=== PATIENT | female | born 1960 | race Caucasian/White ===

== ENCOUNTER → 2019-09-22 09:18 | Outpatient (CLI) | payer OTHER, SELFPAY ==
--- NOTE | ~2019-09-22 | MM_ITS ---
EXAMINATION: MM screening aiyana BI w tanya HISTORY: Screening mammogram TECHNIQUE: Craniocaudal and mediolateral oblique 3-D tomosynthesis images were obtained and synthetic 2-D images were generated. CAD analysis was submitted and interpreted. COMPARISON: 09/16/2018, 09/10/2017, 08/28/2016 bilateral digital screening mammogram examinations BREAST PARENCHYMAL COMPOSITION: The breasts are almost entirely fatty. FINDINGS: There is no evidence of suspicious mass, calcification, or architectural distortion to sugg est malignancy in either breast. There has been no suspicious interval change. IMPRESSION: 1. No mammographic evidence of malignancy. 2. Recommend routine screening mammography in one year. BI-RADS Category 1: Negative Reviewed, dictated and finalized at location A. NSTRUCTIVE DENTIST
--- NOTE | ~2019-09-22 | DEXA_ITS ---
Bone Density Report Name: Bernie Washington Age: 59 Sex: Female Ethnicity: White Date of : 1960 Indication: postmenopausal; screening for osteoporosis; asthma or emphysema; Referring Provider: Krista, Florinda Carter Study: Bone densitometry was performed. Exam Date: September 22, 2019 Accession number: [id number] Bone Density: Region BMD T-score Z-score Classification AP Spine (L1-L4) 1.113 0.6 2.0 Normal Femoral Neck (Left) 0.772 -0.7 0.6 Normal Total Hip (Left) 1.040 0.8 1.8 Normal Femoral Neck (Right) 0.780 -0.6 0.7 Normal Total Hip (Right) 0.999 0.5 1.4 Normal Total Hip Mean 1.020 0.7 1.6 Normal World Health Organization criteria for BMD impression classify patients as: Normal (T-score at or above -1.0), Osteopenia (T-score between -1.0 and -2.5), or Osteoporosis (T-score at or below -2.5). 10-year Fracture Risk: FRAX not reported because: All T-scores for Spine Total, Hip Total, Femoral Neck at or above -1.0 Previous Exams: Region Exam Age BMD T-score BMD Change BMD Change Date g/cm2 vs Baseline vs Previous AP Spine(L1-L4) 09/22/2019 59 1.113 0.6 0.112* 0.011 08/28/2016 56 1.102 0.5 0.101* 0.101* 06/20/2012 52 1.002 -0.4 Total Hip(Left) 09/22/2019 59 1.040 0.8 -0.028* -0.072* 08/28/2016 56 1.112 1.4 0.044* 0.044* 06/20/2012 52 1.068 1.0 Total Hip(Right) 09/22/2019 59 0.999 0.5 0.008 -0.010 08/28/2016 56 1.010 0.6 0.018 0.018 06/20/2012 52 0.991 0.4 *Denotes significance at 95% confidence level, LSC for AP Spine = 0.022 g/cm2, LSC for Total Hip = 0.027 g/cm2 Clinical Information Provided by Patient: Has used the following medications: Vitamin D, mtv Has the following medical conditions: Asthma or Emphysema Patient maximum height was 63 Menopause Age: 39 No regular weight bearing exercise Drinks caffeinated beverages Onset of menses at age 12 Number of children 1 Impression: The patient has normal bone mass. The BMD for the Total Hip(Left) decreased, changing by -0.072 since the last DXA exam. Discussion: BONE DENSITY IS ABOVE THE MINIMUM DESIRABLE LEVEL AT ALL SKELETAL SITES TESTED. This patient?s bone mineral density is above the minimum desirable level (T-score -1.0 or better) at all sites measured. The patient should follow a healthful lifestyle (good nutrition with a
== END ==
PROVIDERS: PCP Family Medicine; Visit Provider Nurse Practitioner Obstetrics & Gynecology
DX: Z12.31 Encounter for screening mammogram for malignant neoplasm of breast (principal); Z78.0 Asymptomatic menopausal state
CPT/HCPCS: 77063; 77067; 77080

== ENCOUNTER → 2020-10-11 10:36 | Outpatient (CLI) | payer OTHER, SELFPAY ==
--- NOTE | ~2020-10-11 | MM_ITS ---
EXAMINATION: MM screening aiyana BI w tanya HISTORY: Screening TECHNIQUE: Craniocaudal and mediolateral oblique 3-D tomosynthesis images were obtained and synthetic 2-D images were generated. CAD analysis was submitted and interpreted. COMPARISON: Comparison to multiple prior studies sequentially, with oldest reviewed study dated 11/2015. BREAST PARENCHYMAL COMPOSITION: There are scattered areas of fibroglandular density. FINDINGS: There is no evidence of suspicious mass, calcification, or architectural distortion to sugg est malignancy in either breast. There has been no suspicious interval change. IMPRESSION: 1. No mammographic evidence of malignancy. 2. Recommend routine screening mammography in one year. BI-RADS Category 1: Negative Reviewed, dictated and finalized at location A. MOTIVE MANAGER
== END ==
PROVIDERS: PCP Family Medicine; Visit Provider Nurse Practitioner Obstetrics & Gynecology
DX: Z12.31 Encounter for screening mammogram for malignant neoplasm of breast (principal)
CPT/HCPCS: 77063; 77067

== ENCOUNTER → 2021-01-07 09:53 | Outpatient (CLI) | payer OTHER, SELFPAY ==
--- NOTE | ~2021-01-07 | XR_ITS ---
EXAMINATION: XR abdomen obstructive series EXAM DATE: 01/07/2021 10:12 INDICATION: R19.7 - Diarrhea, unspecified. TECHNIQUE: Frontal upright projection of the upper abdomen, frontal projection of the lower abdomen f or interpretation. Comparison is made to prior examination from 03/07/2014. FINDINGS: There is expected amount of colonic stool and gas. No small bowel dilation, nonobstructiv e bowel gas pattern. There are no suspicious calcifications identified. Mild to moderate lower t horacic dextroscoliosis, lumbar levoscoliosis. Right midlung zone granulomata. IMPRESSION: Unremarkable bowel gas pattern. Reviewed, dictated and finalized at location A.
== END ==
PROVIDERS: PCP Family Medicine; Visit Provider Family Medicine
DX: R10.9 Unspecified abdominal pain (principal); R19.7 Diarrhea, unspecified
CPT/HCPCS: 74019

== ENCOUNTER 2021-01-17 07:32 | Outpatient (CLI) | payer OTHER, SELFPAY ==
--- NOTE | ~2021-01-17 | CT_ITS ---
EXAMINATION: CT abdomen pelvis w con INDICATION: Unspecified abdominal pain and nausea with diarrhea TECHNIQUE: Computed tomographic images of the abdomen and pelvis were obtained after the administrati on of 100 cc of Omnipaque 350 intravenous contrast. The dose-length product (DLP) was 746.40 mGy-cm. Automated exposure control and iterative reconstruction technique were employed. COMPARISON: 02/01/2006 FINDINGS: Minimal dependent atelectasis is present in the lung bases. The heart size is normal. Suben docardial fat deposition in the left ventricular apex and interventricular septum are consistent with prior myocardial infarction. Punctate calcifications in otherwise normal appearing liver and spleen likely represent healed granulomatous disease. The pancreas and gallbladder appear normal. There are chronic small nodules of the adrenal glands, likely adenomas. The kidneys are unremarkable. No pathol ogically enlarged abdominal or pelvic lymph nodes are identified. There is no free intraperitoneal ga s or evidence of bowel obstruction. There is moderate lumbar spondylosis. IMPRESSION: 1. No CT correlate for the patient's symptoms. 2. CT findings consistent with prior myocardial infarction. Reviewed, dictated and finalized at location D.
[2021-01-17 08:03] LABS: Estimated Glomerular Filt Rate > 60
== END 2021-01-17 07:33 | disposition home or self-care (01) ==
LOC: CHSIMG 07:33
PROVIDERS: PCP Family Medicine; Visit Provider Family Medicine
DX: R10.9 Unspecified abdominal pain (principal); R19.7 Diarrhea, unspecified
CPT/HCPCS: 74177; Q9967

== ENCOUNTER 2021-01-23 13:15 | Outpatient (CLI) | payer OTHER, SELFPAY ==
--- NOTE | 2021-01-23 13:21 | ECHO_ITS ---
Patient Info Name: Bernie Washington Age: 60 years : 1960 Gender: Female Ht: 63 in Wt: 200 lbs BSA: 2.05 m2 HR: 72 bpm BP: 127 / 65 mmHg Heart Rhythm: Sinus Rhythm Technical Quality: Good Exam Date: 01/23/2021 1:22 PM Exam Location: [facility] Patient Status: Outpatient Admit Date: 01/23/2021 Staff Ordering Physician: Regla Tavera PA-C Melt Superintendant: Sis Horan RDCS Attending Provider: Regla Tavera PA-C Referring Physician: Liang HORNER; Exam Type: CA echo dop color flow w con Study Info Indications R93.1 - Abnormal findings on diagnostic imaging of heart and coronary circulation Complete two-dimensional, color flow and Doppler transthoracic echocardiogram is performed with contrast to opacify the left ventricle and to improve the deliniation of the left ventricle endocardial borders. Strain analysis performed. Contrast/Agitated Saline Contrast/Ag. Saline: Definity Amount: 4.00 ml New IV Access: Antecubital Space and Right Site Condition: No extravasation, Site dressing applied and IV removed History/Risk Factors Hypertension: Yes Dyslipidemia: No Congenital Heart Disease (CHD): No Peripheral Arterial Disease (PAD): No Myocardial Infarction ([place]): No Chronic Lung Disease: Yes Obesity: Yes Renal Disease: No Coronary Artery Disease (CAD) No Congestive Heart Failure (CHF): No Cardiomyopathy/LV Systolic Dysfunction: No Diabetes Mellitus: No COPD: No Tobacco Use: Former Cerebrovascular Disease: No Family History: Coronary Artery Disease Deep Vein Thrombosis (DVT): None Dialysis: None Frailty Scale (CSHA): 2: Well Summary 1. Left ventricular chamber dimension is normal. 2. Definity contrast administered improved wall motion interpretation. 3. Left ventricular systolic function is normal, estimated at 60-65%. 4. There is mildly increased left ventricular wall thickness. 5. The left ventricular diastolic function is normal. 6. E/e' 8 is minimally elevated. 7. Global longitudinal strain is normal at -18.6%. 8. Left atrial chamber dimension is mildly enlarged. 9. There is trace mitral valve regurgitation. 10. There is mild tricuspid valve regurgitation. 11. No pulmonary hypertension, estimated pulmonary arterial systolic pressure is 33 mmHg. Left Ventricle E/e' 8 is minimally elevated. Global longitudinal strain is normal at -18.6%. Definity contrast administered improved wall motion interpretation. Left ventricular chamber dimension is normal. Left ventricular systolic function is normal, estimated at 60-65%. There is mildly increased left ventricular wall thickness. The left ventricular diastolic function is normal. Right Ventricle Right ventricular systolic function is normal and with normal TAPSE 2.6 cm. Right ventricular chamber dimension is normal. Left Atria Left atrial chamber dimension is mildly enlarged. Right Atria Right atrial chamber dimension is normal. Aortic Valve The aortic valve is trileaflet. There is no aortic valve stenosis. There is no aortic valve regurgitation. Pulmonic Valve There is no pulmonic regurgitation. Mitral Valve There is no mitral valve stenosis. There is trace mitral valve regurgitation. Tricuspid Valve There is mild tricuspid valve regurgitation. No pulmonary hypertension, estimated pulmonary arterial systolic pressure is 33 mmHg. Pericardi
== END 2021-01-23 13:16 | disposition home or self-care (01) ==
LOC: CHSIMG 13:16
PROVIDERS: PCP Family Medicine; Visit Provider Physician Assistant
DX: R93.1 Abnormal findings on diagnostic imaging of heart and coronary circulation (principal)
CPT/HCPCS: C8929

== ENCOUNTER 2021-03-24 15:36 | Outpatient (CLI) | payer OTHER, SELFPAY ==
--- NOTE | 2021-03-24 15:38 | ECG_ITS ---
Measurements Intervals Simon Rate: 68 P: 68 FL: 147 QRS: 72 QRSD: 86 T: 35 QT: 373 QTc: 399 Interpretive Statements SINUS RHYTHM POSSIBLE LEFT ATRIAL ENLARGEMENT BORDERLINE ST ABNORMALITY- ANTEROLAT/INF LEADS BORDERLINE ECG Electronically Signed On 03-24-2021 16:49:31 CDT by Hiram Montalvo D.O.
== END 2021-03-24 15:37 | disposition home or self-care (01) ==
PROVIDERS: PCP Internal Medicine; Visit Provider Internal Medicine Cardiovascular Disease
DX: R00.2 Palpitations (principal)
CPT/HCPCS: 93005

== ENCOUNTER 2021-10-13 09:11 | Outpatient (CLI) | payer OTHER, SELFPAY ==
[2021-10-13 09:52] LABS: Basophils Absolute Auto 0.06 K/mm3 (0.00-0.10); Basophils Percent Auto 1.4 % (0.0-1.0); Eosinophils Percent Auto 4.8 % (1.0-6.0); Hematocrit 47.4 % (35.0-49.0); Hemoglobin 14.3 g/dL (12.0-15.0); Immature Granulocyte Absolute 0.01 K/mm3 (0.00-0.00); Immature Granulocyte Percent A 0.2 % (0.0-0.0); Lymphocytes Absolute Auto 1.46 K/mm3 (1.10-4.50); Lymphocytes Percent Auto 34.8 % (18.0-42.0); Mean Corpuscular HGB Conc 30.2 g/dL (32.0-36.0); Mean Corpuscular Hemoglobin 29.5 pg (27.0-31.0); Mean Corpuscular Volume 97.9 fL (78.0-102.0); Mean Platelet Volume 10.8 fl (9.2-11.8); Monocytes Absolute Auto 0.32 K/mm3 (0.10-0.90); Monocytes Percent Auto 7.6 % (2.0-11.0); Neutrophils Absolute Auto 2.1 K/mm3 (1.7-7.2); Neutrophils Percent Auto 51.2 % (50.0-70.0); Platelet Count Result 221 K/mm3 (150-420); Red Blood Count 4.84 M/mm3 (4.20-5.40); Red Cell Distribution Width 12.6 % (11.6-14.4); White Blood Count 4.2 K/mm3 (4.8-10.8)
[2021-10-13 10:08] LABS: Add Urine Microscopic? YES; Appearance Urine Clear (Clear); Bilirubin Urine Negative (Negative); Blood Urine Negative (Negative); Color Urine Light Yellow (Yellow); Glucose Urine UA Negative (Negative); Ketones Urine Negative (Negative); Leukocyte Esterase Ur 3+ (Negative); Nitrate Urine Negative (Negative); Protein Urine Negative (Negative); Specific Grav Ur 1.025 (1.010-1.020); Urobilinogen Urine 0.2 mg/dL (0.2-1.0)
[2021-10-13 10:20] LABS: Bacteria Urine 1+ /hpf; RBC Urine None seen /hpf (0-2); Renal Epithelial Cells Urine Few /hpf; Squamous Epithelial Cell Urine Few /hpf (Few); WBC Urine 16-20 /hpf (0-3)
[2021-10-13 11:04] LABS: Alanine Aminotransferase 21 U/L (14-59); Albumin Level 3.7 g/dL (3.4-5.0); Alkaline Phosphatase 53 U/L (46-116); Anion Gap 9 mmol/L (8-16); Aspartate Amino Transferase 14 U/L (15-37); Bilirubin,Total 0.4 mg/dL (0.00-1.00); Blood Urea Nitrogen 16 mg/dL (7-18); Calcium 8.7 mg/dL (8.5-10.1); Carbon Dioxide 25 mmol/L (21-32); Chloride 103 mmol/L (98-108); Cholesterol 283 mg/dL (0-200); Estimated Glomerular Filt Rate > 60; Glucose 96 mg/dL (70-99); HDL Direct 102 mg/dL (40-60); LDL Cholesterol Calculated 165 mg/dL (<130); Osmolality Calculated 285 mOsm/kg (285-295); Potassium 4.5 mmol/L (3.5-5.1); Sodium 137 mmol/L (136-145); Thyroid Stimulating Hormone 1.35 uIU/mL (0.36-3.74); Total Protein 7.1 g/dL (6.4-8.2); Triglycerides 82 mg/dL (0-150)
[2021-10-13 11:58] LABS: Cholesterol 283 mg/dL (0-200); HDL Direct 102 mg/dL (40-60); LDL Cholesterol Calculated 165 mg/dL (<130); Triglycerides 82 mg/dL (0-150)
== END 2021-10-13 09:12 | disposition home or self-care (01) ==
LOC: CHSLAB 09:13
PROVIDERS: PCP Internal Medicine; Visit Provider Internal Medicine Cardiovascular Disease
DX: E78.5 Hyperlipidemia, unspecified (principal); Z00.00 Encounter for general adult medical examination without abnormal findings
CPT/HCPCS: 36415; 80053; 80061; 81001; 84443; 85025

== ENCOUNTER 2021-10-21 15:32 | Outpatient (CLI) | payer OTHER, SELFPAY ==
--- NOTE | ~2021-10-21 | XR_ITS ---
XR chest 2V DATE: 10/21/2021 16:00 INDICATION: Cough, shortness of breath, back pain for one week TECHNIQUE: PA and lateral views COMPARISON: 02/26/2010 PA and lateral chest FINDINGS: Bilateral hyperinflation, consistent with COPD. No pulmonary infiltrate or consolidation, p leural effusion or pulmonary vascular congestion or pneumothorax. There is old pulmonary granulomatou s disease. Normal heart size. No hilar or mediastinal enlargement. Diffuse osteopenia. Dextroscoliosis of the thoracolumbar spine. IMPRESSION: Bilateral hyperinflation consistent with COPD No active cardiopulmonary disease Reviewed, dictated and finalized at location A. RER
[2021-10-21 16:29] LABS: Basophils Absolute Auto 0.04 K/mm3 (0.00-0.10); Basophils Percent Auto 0.4 % (0.0-1.0); Eosinophils Absolute Auto 0.02 K/mm3 (0.02-0.50); Eosinophils Percent Auto 0.2 % (1.0-6.0); Hematocrit 40.8 % (35.0-49.0); Hemoglobin 13.6 g/dL (12.0-15.0); Immature Granulocyte Absolute 0.04 K/mm3 (0.00-0.00); Immature Granulocyte Percent A 0.4 % (0.0-0.0); Lymphocytes Absolute Auto 1.72 K/mm3 (1.10-4.50); Lymphocytes Percent Auto 17.9 % (18.0-42.0); Mean Corpuscular HGB Conc 33.3 g/dL (32.0-36.0); Mean Corpuscular Hemoglobin 30.2 pg (27.0-31.0); Mean Corpuscular Volume 90.5 fL (78.0-102.0); Mean Platelet Volume 11.1 fl (9.2-11.8); Monocytes Absolute Auto 0.44 K/mm3 (0.10-0.90); Monocytes Percent Auto 4.6 % (2.0-11.0); Neutrophils Absolute Auto 7.4 K/mm3 (1.7-7.2); Neutrophils Percent Auto 76.5 % (50.0-70.0); Platelet Count Result 254 K/mm3 (150-420); Red Blood Count 4.51 M/mm3 (4.20-5.40); Red Cell Distribution Width 12.5 % (11.6-14.4); White Blood Count 9.6 K/mm3 (4.8-10.8)
[2021-10-21 16:38] LABS: Alanine Aminotransferase 19 U/L (14-59); Albumin Level 4.1 g/dL (3.4-5.0); Alkaline Phosphatase 54 U/L (46-116); Anion Gap 11 mmol/L (8-16); Aspartate Amino Transferase 10 U/L (15-37); Bilirubin,Total 0.3 mg/dL (0.00-1.00); Blood Urea Nitrogen 16 mg/dL (7-18); Calcium 9.1 mg/dL (8.5-10.1); Carbon Dioxide 26 mmol/L (21-32); Chloride 104 mmol/L (98-108); Estimated Glomerular Filt Rate > 60; Glucose 113 mg/dL (70-99); Osmolality Calculated 294 mOsm/kg (285-295); Potassium 3.9 mmol/L (3.5-5.1); Sodium 141 mmol/L (136-145)
[2021-10-21 16:41] LABS: SARS-CoV-2 RNA PCR Negative (Negative)
== END 2021-10-21 15:33 | disposition home or self-care (01) ==
LOC: CHSLAB 15:33
PROVIDERS: PCP Internal Medicine; Visit Provider Internal Medicine
DX: J18.9 Pneumonia, unspecified organism (principal); Z20.822 Contact with and (suspected) exposure to COVID-19
CPT/HCPCS: 36415; 71046; 80053; 85025; C9803; U0003; U0005

== ENCOUNTER 2022-05-13 11:50 | Outpatient (CLI) | payer OTHER, SELFPAY ==
[2022-05-13 12:03] LABS: Basophils Absolute Auto 0.08 K/mm3 (0.00-0.10); Basophils Percent Auto 0.9 % (0.0-1.0); Eosinophils Absolute Auto 0.27 K/mm3 (0.02-0.50); Hematocrit 42.9 % (35.0-49.0); Hemoglobin 14.5 g/dL (12.0-15.0); Immature Granulocyte Absolute 0.05 K/mm3 (0.00-0.00); Immature Granulocyte Percent A 0.6 % (0.0-0.0); Lymphocytes Absolute Auto 3.23 K/mm3 (1.10-4.50); Lymphocytes Percent Auto 35.7 % (18.0-42.0); Mean Corpuscular HGB Conc 33.8 g/dL (32.0-36.0); Mean Corpuscular Hemoglobin 30.7 pg (27.0-31.0); Mean Corpuscular Volume 90.7 fL (78.0-102.0); Mean Platelet Volume 10.4 fl (9.2-11.8); Monocytes Absolute Auto 0.68 K/mm3 (0.10-0.90); Monocytes Percent Auto 7.5 % (2.0-11.0); Neutrophils Absolute Auto 4.7 K/mm3 (1.7-7.2); Neutrophils Percent Auto 52.3 % (50.0-70.0); Platelet Count Result 288 K/mm3 (150-420); Red Blood Count 4.73 M/mm3 (4.20-5.40); Red Cell Distribution Width 12.6 % (11.6-14.4)
[2022-05-13 12:45] LABS: Alanine Aminotransferase 23 U/L (14-59); Albumin Level 3.8 g/dL (3.4-5.0); Alkaline Phosphatase 61 U/L (46-116); Anion Gap 8 mmol/L (8-16); Aspartate Amino Transferase 12 U/L (15-37); Bilirubin,Total 0.4 mg/dL (0.00-1.00); Blood Urea Nitrogen 21 mg/dL (7-18); Calcium 8.8 mg/dL (8.5-10.1); Carbon Dioxide 28 mmol/L (21-32); Chloride 100 mmol/L (98-108); Creatine Kinase 47 U/L (26-192); Estimated Glomerular Filt Rate > 60; Ferritin 169 ng/mL (8-252); Glucose 100 mg/dL (70-99); Magnesium 2.2 mg/dL (1.8-2.4); Osmolality Calculated 285 mOsm/kg (285-295); Phosphorus 4.1 mg/dL (2.6-4.7); Potassium 3.8 mmol/L (3.5-5.1); Sodium 136 mmol/L (136-145); Thyroid Stimulating Hormone 1.96 uIU/mL (0.36-3.74); Total Protein 7.1 g/dL (6.4-8.2)
[2022-05-13 12:47] LABS: CRP < 0.2 mg/dL (0.0-0.9)
[2022-05-13 17:01] LABS: Hemoglobin A1C 5.3 % (<5.7)
== END 2022-05-13 11:51 | disposition home or self-care (01) ==
LOC: CHSLAB 11:52
PROVIDERS: PCP Internal Medicine; Visit Provider Internal Medicine
DX: G25.81 Restless legs syndrome (principal); R73.09 Other abnormal glucose
CPT/HCPCS: 36415; 80053; 82550; 82728; 83036; 83735; 84100; 84443; 85025; 86140

== ENCOUNTER 2022-06-23 09:42 | Outpatient (CLI) | payer OTHER, SELFPAY ==
--- NOTE | ~2022-06-23 | XR_ITS ---
EXAM: XR hip LT min 2V DATE: 06/23/2022 10:07 HISTORY: Left hip pain/back pain chronic leg pain radiating to the . COMPARISON: None available. FINDINGS: Normal mineralization. No fracture or dislocation. No lytic or blastic lesion. Mild superi or hip joint space narrowing. No erosion or periosteal change. Soft tissues within normal limits. IMPRESSION: Mild left hip osteoarthritis. Reviewed, dictated and finalized at location K.
--- NOTE | ~2022-06-23 | XR_ITS ---
EXAMINATION: XR lumbar spine 2-3V DATE: 06/23/2022 10:08 INDICATION: Chronic left hip and back pain radiating to the ankle TECHNIQUE: Anteroposterior and lateral views of the lumbar spine, and cone-down lateral view of the l umbosacral junction were obtained. COMPARISON: None. FINDINGS: T12 bilateral hypoplastic riblets. 7 degrees lumbar levocurvature. 3 mm anterolisthesis L4 on L5. Vertebral body heights are normal. Moderate to severe disc height loss with vacuum phenomena at L1-L2 and L2-L3. Moderate disc height loss at T10-T11 and with vacuum pheno reynolds at L5-S1. Mild disc height loss at T12-L1, L3-L4 and L4-L5. Superior lower lumbar facet osteoart hritis. Sacral arches are intact. Mild bilateral sacroiliac osteoarthritis. Suggestion of a suture li ne in the left hemipelvis. Posterior lung bases are clear with no pleural effusion. IMPRESSION: 1. Mild lumbar levocurvature with moderate to severe spondylosis. Reviewed, dictated and finalized at location B.
== END 2022-06-23 09:43 | disposition home or self-care (01) ==
LOC: CHSIMG 09:45
PROVIDERS: PCP Internal Medicine; Visit Provider Internal Medicine
DX: M25.552 Pain in left hip (principal); M54.9 Dorsalgia, unspecified
CPT/HCPCS: 72100; 73502

== ENCOUNTER 2022-06-29 07:51 | Outpatient (RCR) | payer OTHER, SELFPAY ==
--- NOTE | 2022-06-29 09:03 | PTOPEVAL1 ---
Assessment and note entered by Eduardo Ortiz Evaluation Information Assessment Status Evaluation Diagnosis right lumbar radiculopathy Onset 05/25/22 Subjective Information Pt. reports that she developed pain initially about 1 month ago. She reports pain started with pain at the low back and radiating down the right leg with laying down. She reports no discomfort with sitting. She reports that pain can vary with standing. She states that she can develop pain with standing to fold clothes. She underwent xray which revealed some disc that do not look good. She did have some OA in the hip. She reports she continues to complete all activities despite her pain. She reports she is losing sleep due to pain . She states that Reported Pain Level Pain Score 3: Self Report Assessment PT Clinical Summary Pt. is a 62 year old female who enters the clinic due to developed low back pain. She presents with core and proximal l.e. weakness, impaired postural awareness, impaired flexibility and pain. Continued treatment is indicated in order to improve these areas to allow the pt. to be able to complete all IADL's without limitation. Plan of Care Interventions Electrical Stimulation,Hot Pack/Cold Pack,Manual Therapy,Mechanical Traction,Neuro Re-education, Therapeutic Activities,Therapeutic Exercise,Self- Care/Home Management PT Services Indicated Yes Treatment Frequency and 2x/week x 10 visits Duration These treatments will address the objective and functional deficits as defined above. The patient will be advanced safely and appropriately in order for the patient to progress towards his/her prior level of function. Additional exercises will be introduced and as well as a comprehensive home exercise program upon discharge, if needed, ?to ensure carryover of functional gains achieved in the clinic. This treatment plan has been reviewed and agreement upon by the patient.
== END 2022-07-09 15:21 | disposition home or self-care (01) ==
LOC: CHSPT 07:51
PROVIDERS: PCP Internal Medicine; Visit Provider Internal Medicine
DX: M47.817 Spondylosis without myelopathy or radiculopathy, lumbosacral region (principal); M54.16 Radiculopathy, lumbar region
CPT/HCPCS: 97014; 97110; 97161; G0283

== ENCOUNTER 2022-07-08 17:15 | Outpatient (CLI) | payer OTHER, SELFPAY ==
--- NOTE | ~2022-07-08 | XR_ITS ---
XR thoracic spine 2V DATE: 07/08/2022 17:52 INDICATION: Mid back pain, right leg pain TECHNIQUE: AP, lateral and swimmer views COMPARISON: None FINDINGS: There is minimal anterolisthesis at C4-5. There is severe degenerative disc disease at C5-6 and C6-7. There is slight levoscoliosis of the upper thoracic spine and mild dextro scoliosis of the lower thor acic spine. There is mild to moderate degenerative spurring throughout much of the thoracic spine. No fracture or dislocation or bone destruction is detected. The thoracic pedicles are intact. No paraspinal soft ti ssue thickening. IMPRESSION: Mild scoliosis and mild to moderate degenerative spurring Severe degenerative disc disease at C5-6 and C6-7 Reviewed, dictated and finalized at location A. HUSKER
--- NOTE | ~2022-07-08 | XR_ITS ---
XR hip RT min 2V DATE: 07/08/2022 17:52 INDICATION: Right hip, leg pain TECHNIQUE: AP and lateral views COMPARISON: None FINDINGS: No fracture or dislocation, avascular necrosis or bone destruction. Right hip joint space a ppears well preserved. IMPRESSION: Negative Reviewed, dictated and finalized at location A. ROPOLOGY DEPARTMENT CHAIR IMPRESSION: Negative
== END 2022-07-08 17:16 | disposition home or self-care (01) ==
LOC: CHSIMG 17:17
PROVIDERS: PCP Internal Medicine; Visit Provider Internal Medicine
DX: M54.6 Pain in thoracic spine (principal); M79.604 Pain in right leg
CPT/HCPCS: 72070; 73502

== ENCOUNTER 2022-09-04 08:53 | Outpatient (CLI) | payer OTHER, SELFPAY ==
--- NOTE | 2022-09-04 09:14 | EST_ITS ---
Patient Info Name: Bernie Washington Age: 62 years : 1960 Gender: Female Ht: 63 in Wt: 215 lbs BSA: 2.13 m2 Exam Date: 09/04/2022 9:23 AM Exam Location: [facility] Patient Status: Outpatient Admit Date: 09/04/2022 Staff Ordering Physician: Hiram Montalvo DO Pre Fabricator: Ronald Barcenas RDCS, RT Attending Provider: Referring Physician: Selvin SMYTH; Exercise Technologist: Ronald Barcenas RDCS RT Exercise Physician: Hiram Montalvo DO Exam Type: CA stress echo Study Info Indications R00.2 - Palpitations R07.9 - Chest pain, unspecified Treadmill exercise stress echocardiogram is performed. History/Risk Factors Hypertension: Yes Dyslipidemia: No Congenital Heart Disease (CHD): No Peripheral Arterial Disease (PAD): No Myocardial Infarction (SD): No Chronic Lung Disease: Yes Obesity: Yes Renal Disease: No Coronary Artery Disease (CAD) No Congestive Heart Failure (CHF): No Cardiomyopathy/LV Systolic Dysfunction: No Diabetes Mellitus: No COPD: No Tobacco Use: Former Cerebrovascular Disease: No Family History: Coronary Artery Disease Deep Vein Thrombosis (DVT): None Dialysis: None Frailty Scale (CSHA): 2: Well Summary 1. 1. Negative Jean-Pierre exercise stress test for ischemic ST changes by ECG criteria. 2. 2. Good functional capacity, achieving 7 METs of workload. 3. 3. Baseline hypertension. 4. 4. Appropriate HR response to exercise. 5. 5. Appropriate HR recovery at 1 minute post exercise. 6. 6. Negative stress echocardiogram for ischemia by wall motion analysis. 7. 7. Patient informed of the above results. Stress Echo Findings Left Ventricle Appropriate increase in LV endocardial thickening with systole. Appropriate augmentation of contractilty with systole. No wall motion abnormality. Left Ventricle Normal LV systolic function, no wall motion abnormality. Protocol: Jean-Pierre Stress ECG Details Stage: REST Duration (min): 1 min : 17 sec Speed (mph): 0.0 Grade (%): 0 HR (bpm): 75 SBP (mmHg): 154 DBP (mmHg): 70 METS: --- Stage: REST Duration (min): 9 min : 59 sec Speed (mph): 0.0 Grade (%): 0 HR (bpm): 80 SBP (mmHg): 154 DBP (mmHg): 70 METS: --- Stage: STAGE 1 Duration (min): 1 min : 0 sec Speed (mph): 1.7 Grade (%): 10 HR (bpm): 105 SBP (mmHg): 154 DBP (mmHg): 70 METS: --- Stage: STAGE 1 Duration (min): 2 min : 0 sec Speed (mph): 1.7 Grade (%): 10 HR (bpm): 117 SBP (mmHg): 154 DBP (mmHg): 70 METS: --- Stage: STAGE 1 Duration (min): 3 min : 0 sec Speed (mph): 1.7 Grade (%): 10 HR (bpm): 126 SBP (mmHg): 179 DBP (mmHg): 90 METS: --- Stage: STAGE 2 Duration (min): 1 min : 0 sec Speed (mph): 2.5 Grade (%): 12 HR (bpm): 131 SBP (mmHg): 179 DBP (mmHg): 90 METS: --- Stage: STAGE 2 Duration (min): 2 min : 0 sec Speed (mph): 2.5 Grade (%): 12 HR (bpm): 137 SBP (mmHg): 199 DBP (mmHg): 84 METS: --- Stage: STAGE 2 Duration (min): 3 min :
== END 2022-09-04 08:54 | disposition home or self-care (01) ==
LOC: ANHCARD 08:54
PROVIDERS: PCP Internal Medicine; Visit Provider Internal Medicine Cardiovascular Disease
DX: R07.9 Chest pain, unspecified (principal)
CPT/HCPCS: 93351

== ENCOUNTER 2022-10-07 09:04 | Outpatient (CLI) | payer OTHER, SELFPAY ==
--- NOTE | 2022-10-11 15:57 | WPDHOMESLEEP ---
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 She has had difficulty controlling her hypertension and complains of nocturnal palpitations. She wakes up throughout the night. Her doctor recently added amlodipine and metoprolol. There is a family history of sleep conditions, 2 brothers and a sister have sleep apnea. She constantly awakens from sleep feeling short of breath. She rarely awakens at night with heartburn, belching or coughing. She constantly snores loudly enough that others complain about it. She frequently has trouble sleeping with a cold. She constantly wakes up gasping for breath at night and has had witnessed apneas. She rarely sweats excessively at night. She always notices her heart pounding or beating irregularly at night. She frequently falls asleep during the day. She takes naps when it is possible. She does not fall asleep involuntarily or while driving. She does not have loss of muscle tone with strong emotion. She does not have daytime difficulties due to excessive sleepiness. She does not feel paralyzed on waking or falling asleep. She rarely has vivid dreamlike scenes on waking or falling asleep. She does not feel afraid to go to sleep. She occasionally has nightmares. She occasionally remembers her dreams. She occasionally has racing thoughts. She does not feel sad or depressed. She always has anxiety. She frequently has muscular tension. She does not notice parts of her body jerking. She occasionally kicks at night. She frequently has crawling and aching feelings in her legs. She occasionally has leg pain at night. She does not have morning jaw pain. She does not grind her teeth during sleep. She occasionally is bothered by pain during the day. She rarely is awakened by pain during the night. She frequently wakes up feeling stiff in the morning. She occasionally wakes up with sore achy muscles. She frequently wakes up with pain in the neck and spine. She has headaches. In addition to asthma and hypertension, she has seasonal allergies. Her normal bedtime is between 8 and 9:00 p.m. during the week, falling asleep within 20 minutes and typically waking twice at night for unclear reasons. Sometimes she may toss and turn. She is usually able to return to sleep within 5-15 minutes. She wakes in the morning by 6:00 a.m.. On weekends, bedtime is later, between 10:00 p.m. and 11:00 p.m. and she wakes later, between 7:30 a.m. and 8:30 a.m.. She estimates getting 7 8 hours of sleep at night. She takes naps in the afternoon or evening if possible. A short nap lasting 10 or 15 minutes may be refreshing. She is usually drowsy for 2 hours after waking. She feels better in the morning or afternoon than she ever feels in the evening. Habits: She stop tobacco 30 years ago. She drinks coffee or tea daily. She drinks alcohol on weekends. No recreational substances. [facility] Past Medical History Medical History (Updated 10/11/22 @ 16:19 by Kala Sewell MD) Anxiety Asthma Glaucoma Hypertension Family History Family History Father CHF (congestive heart failure) Mother Dementia Sibling Glaucoma Heart valve disorder Other Family history of arthritis Social History Social History Smoking status: Never smoker Second hand tobacco smoke exposure: No Alcohol intake: never Substance use: never Sub
[2022-10-11 16:11] VITALS: BMI 38.0
--- NOTE | 2022-10-20 14:19 | SLEEP ---
pt scheduled for
== END 2022-10-08 10:25 | disposition home or self-care (01) ==
LOC: ANHCSM 09:05
PROVIDERS: PCP Internal Medicine; Visit Provider Internal Medicine Cardiovascular Disease
DX: G47.10 Hypersomnia, unspecified (principal); R06.83 Snoring
CPT/HCPCS: 95800

== ENCOUNTER 2022-10-21 08:07 | Outpatient (CLI) | payer OTHER, SELFPAY ==
--- NOTE | 2022-10-24 20:14 | WPDSLEEPSTUD ---
Sleep Study Date of Study: 10/21/22 Ordering Provider: Hiram Montalvo DO Interpreting Physician: Kala Sewell MD Sleep Study Type: Split Polysomnogram Height: 1.6 m Weight: 95.708 kg Body Mass Index: 37.3 Neck Circumference (inches): 16 [place]: 9 Reason for Sleep Study 10/07/2022 home sleep test using WatchPat with desaturation to 80%, loud snoring and fragmented sleep with an overall apnea-hypopnea index of 3.5. She had severe symptoms including hypertension which was difficult to control. She returns for a split night study for further evaluation. Sleep History Bernie Washington is a 62-year-old woman with frequent hypersomnia. She has had difficulty controlling her hypertension and complains of nocturnal palpitations.? She wakes up throughout the night.? Her doctor recently added amlodipine and metoprolol.? There is a family history of sleep conditions, 2 brothers and a sister have sleep apnea.? She constantly awakens from sleep feeling short of breath.? She rarely awakens at night with heartburn, belching or coughing.? She constantly snores loudly enough that others complain about it.? She frequently has trouble sleeping with a cold.? She constantly wakes up gasping for breath at night and has had witnessed apneas.? She rarely sweats excessively at night.? She always notices her heart pounding or beating irregularly at night.? She frequently falls asleep during the day.? She takes naps when it is possible.? She does not fall asleep involuntarily or while driving.? She does not have loss of muscle tone with strong emotion.? She does not have daytime difficulties due to excessive sleepiness.? She does not feel paralyzed on waking or falling asleep.? She rarely has vivid dreamlike scenes on waking or falling asleep.? She does not feel afraid to go to sleep.? She occasionally has nightmares.? She occasionally remembers her dreams.? She occasionally has racing thoughts.? She does not feel sad or depressed.? She always has anxiety.? She frequently has muscular tension.? She does not notice parts of her body jerking.? She occasionally kicks at night.? She?frequently has crawling and aching feelings in her legs.? She occasionally has leg pain at night.? She does not have morning jaw pain.? She does not grind her teeth during sleep.? She occasionally is bothered by pain during the day.? She rarely is awakened by pain during the night.? She frequently wakes up feeling stiff in the morning.? She occasionally wakes up with sore achy muscles.? She frequently wakes up with pain in the neck and spine.? She has headaches.? In addition to asthma and hypertension, she has seasonal allergies. Her normal bedtime is between 8 and 9:00 p.m. during the week, falling asleep within 20 minutes and typically waking twice at night for unclear reasons.? Sometimes she may toss and turn.? She is usually able to return to sleep within 5-15 minutes.? She wakes in the morning by 6:00 a.m..? On weekends, bedtime is later, between 10:00 p.m. and 11:00 p.m. and she wakes later, between 7:30 a.m. and 8:30 a.m..? She estimates getting 7 8 hours of sleep at night.? She takes naps in the afternoon or evening if possible.? A short nap lasting 10 or 15 minutes may be refreshing.? She is usually drowsy for 2 hours after waking.? She feels better in the morning? or afternoon than she ever feels in the evening. Habits:? She stop tobacco 30 years ago.? She drinks coffee or tea daily.? She drinks alcohol on weekends.? No recreational substances. [facility] Past Medical History Medical History Anxiety Asthma Glaucoma Hypertension Family History Family History Father CHF (congestive heart failure) Mother Dementia Sibling Glaucoma Heart valve disorder Other Family history of arthritis Social History Social History (Reviewed 10/24/22 @ 20:17 by Kala Riggs
[2022-10-24 20:59] VITALS: BMI 37.3
== END 2022-10-22 09:06 | disposition home or self-care (01) ==
PROVIDERS: PCP Nurse Practitioner Family; Visit Provider Internal Medicine Cardiovascular Disease
DX: G47.34 Idiopathic sleep related nonobstructive alveolar hypoventilation (principal); G47.33 Obstructive sleep apnea (adult) (pediatric)
CPT/HCPCS: 95811

== ENCOUNTER 2023-03-29 01:50 | Day surgery (SDC) | payer OTHER, SELFPAY ==
[2023-03-18 09:35] VITALS: BMI 38.1
--- NOTE | 2023-03-26 15:09 | PM.HPGS ---
History of Present Illness History of Present Illness Consent: Risks, benefits, and alternatives have been discussed and questions answered. Patient agrees to proceed with procedure. Chief complaint: neoplasm screening Narrative: Bernie Washington is a 63 year old female Referred for colon cancer screening. Her last colonoscopy was in 2017 and she was advised to have a 5 year follow-up. Review of Systems Review of Systems: All systems reviewed & are unremarkable except as noted in HPI and below PMFSH Past Medical History Medical History Anxiety Asthma Glaucoma Hypertension Family History Family History Father CHF (congestive heart failure) Mother Dementia Sibling Glaucoma Heart valve disorder Other Family history of arthritis Social History Social History Smoking packs per day: 0.5 Smoking cigarettes per day: 10.0 Years smoked: 12 Smoking pack-years: 6.00 Smoking status: Former smoker Tobacco type: cigarettes Second hand tobacco smoke exposure: No Alcohol intake: current Alcohol use details: BEER Substance use: never Substance use type: does not use Lack of Transportation: No Lack of Food: Never True Current Housing: I Have Housing Concerned About Future Housing: No Difficulty Paying Gas/Electric Bills: No Difficulty Paying for Meds: No Currently Unemployed: No Education: High School Diploma/GED Difficulty w/ Childcare or Family Care: No Living arrangements: with family Occupation/Education: retired Spiritual care concerns: No Meds Home Medications and Allergies Home Medications Medication Instructions Recorded Confirmed Type albuterol sulfate 90 mcg/actuation 1 inhalation inhalation Q4H PRN 03/15/20 03/18/23 Rx aerosol inhaler (ProAir HFA) shortness of breath or wheezing #3 device dorzolamide 2 % eye drops 1 drp EACH EYE TID 01/07/21 03/18/23 History hydrochlorothiazide 25 mg tablet 25 mg PO DAILY #30 tabs 01/05/23 03/18/23 Rx paroxetine HCl 20 mg tablet (Paxil) 20 mg PO BID #180 tabs 01/05/23 03/29/23 Rx metoprolol succinate 25 mg 12.5 mg PO DAILY #45 tabs 02/19/23 03/29/23 Rx tablet,extended release 24 hr Centrum Adult 50 Plus 1 tab-cap PO DAILY 03/18/23 03/18/23 History Natural Vitamin E 180 units PO DAILY 03/18/23 03/18/23 History ascorbic acid (vitamin C) 500 mg 500 mg PO DAILY 03/18/23 03/18/23 History tablet cetirizine 10 mg tablet 10 mg PO DAILY 03/18/23 03/18/23 History cholecalciferol (vitamin D3) 10 10 mcg PO DAILY 03/18/23 03/18/23 History mcg (400 unit) tablet (Vitamin D3) losartan 100 mg tablet 100 mg PO DAILY 03/18/23 03/18/23 History mecobalamin (vitamin B12) 1,000 1,000 mcg sublingual DAILY 03/18/23 03/18/23 History mcg disintegrating tablet,sublingual omega 3-acq-djt-fish oil 1,000 mg 4 cap PO DAILY 03/18/23 03/18/23 History (120 mg-180 mg) capsule (Fish Oil) Allergies Allergy/AdvReac Type Severity Reaction Status Date / Time diltiazem Allergy Severe Difficulty Verified 03/29/23 06:45 Breathing Exam Const: General: alert Orientation/consciousness: patient oriented x3 Resp: Auscultation: clear to auscultation bilaterally Cardio: Rhythm: regular rhythm GI: GI Palp: Yes Soft to palpation and No Tenderness to palpation present (GI) Neuro: General: patient oriented x3 Assessment and Plan Assessment and plan (1) Colon cancer screening: Code(s): Z12.11 - Encounter for screening for malignant neoplasm of colon Status: Acute Assessment and Plan: Colonoscopy with possible biopsy or polypectomy or cautery or injection of substances.
[2023-03-29 06:47] VITALS: BP 147/79; PULSE 72; RESP 16; TEMP 36.4; O2SAT 98
[2023-03-29] MEDS: LACTATED RINGERS 1,000 ML 150 ML IV CONT (07:04)
--- NOTE | 2023-03-29 07:56 | WPDANESEPPF ---
Anes - Initial Pre Proc Eval Procedure: Operation Date: 03/29/23 08:00 Proposed Procedures p Screening Colonoscopy - Wu Roth MD Date/Time: 03/29/23 07:56 Surgeon: Wu Roth MD Pre Op Diagnosis: neoplasm screening Patient Data Age: 63 Gender: F Height: 1.6 m Weight: 96.6 kg Last Vital Signs Temp 36.4 C 03/29/23 06:47 Pulse 72 03/29/23 06:47 Resp 16 03/29/23 06:47 BP 147/79 H 03/29/23 06:47 Pulse Ox 98 03/29/23 06:47 O2 Del Method Room Air 03/29/23 06:47 Allergies Allergy/AdvReac Type Severity Reaction Status Date / Time diltiazem Allergy Severe Difficulty Verified 03/29/23 06:45 Breathing Home Medications Medication Instructions Recorded Confirmed Type albuterol sulfate 90 mcg/actuation 1 inhalation inhalation Q4H PRN 03/15/20 03/18/23 Rx aerosol inhaler (ProAir HFA) shortness of breath or wheezing #3 device dorzolamide 2 % eye drops 1 drp EACH EYE TID 01/07/21 03/18/23 History paroxetine HCl 20 mg tablet (Paxil) 20 mg PO BID #180 tabs 01/05/23 03/29/23 Rx metoprolol succinate 25 mg 12.5 mg PO DAILY #45 tabs 02/19/23 03/29/23 Rx tablet,extended release 24 hr Centrum Adult 50 Plus 1 tab-cap PO DAILY 03/18/23 03/18/23 History Natural Vitamin E 180 units PO DAILY 03/18/23 03/18/23 History ascorbic acid (vitamin C) 500 mg 500 mg PO DAILY 03/18/23 03/18/23 History tablet cetirizine 10 mg tablet 10 mg PO DAILY 03/18/23 03/18/23 History cholecalciferol (vitamin D3) 10 10 mcg PO DAILY 03/18/23 03/18/23 History mcg (400 unit) tablet (Vitamin D3) losartan 100 mg tablet 100 mg PO DAILY 03/18/23 03/18/23 History mecobalamin (vitamin B12) 1,000 1,000 mcg sublingual DAILY 03/18/23 03/18/23 History mcg disintegrating tablet,sublingual omega 9-kdc-ary-fish oil 1,000 mg 4 cap PO DAILY 03/18/23 03/18/23 History (120 mg-180 mg) capsule (Fish Oil) hydrochlorothiazide 25 mg tablet 25 mg PO DAILY #30 tabs 03/29/23 Rx Patient hx anesthesia problems: none Family hx anesthesia problems: none Results Review: All pre-operative results and documents have been reviewed as part of the pre-operative evaluation. PMFSH Past Medical History Medical History Anxiety Asthma Glaucoma Hypertension Family History Family History Father CHF (congestive heart failure) Mother Dementia Sibling Glaucoma Heart valve disorder Other Family history of arthritis Social History Social History Smoking packs per day: 0.5 Smoking cigarettes per day: 10.0 Years smoked: 12 Smoking pack-years: 6.00 Smoking status: Former smoker Tobacco type: cigarettes Second hand tobacco smoke exposure: No Alcohol intake: current Alcohol use details: BEER Substance use: never Substance use type: does not use Lack of Transportation: No Lack of Food: Never True Current Housing: I Have Housing Concerned About Future Housing: No Difficulty Paying Gas/Electric Bills: No Difficulty Paying for Meds: No Currently Unemployed: No Education: High School Diploma/GED Difficulty w/ Childcare or Family Care: No Living arrangements: with family Occupation/Education: retired Spiritual care concerns: No Anes - Eval Final PreProcedure Day of Procedure 03/29/23 07:56 Patient weight: obese Heart: regular rate and rhythm Lungs: clear to auscultation Airway: Mallampati scale class II Last oral intake: >/= 8 hours ASA classification: III Emergent: no Anesthetic plan: proceed Anesthesia type and monitoring: general GIVS and standard monitoring Results Review: All pre-operative results and documents have been reviewed as part of the pre-operative evaluation. Informed Consent: The patient's anesthetic plan and its attendant risks and benefits we
[2023-03-29 08:16] VITALS: BP 101/53; PULSE 58; RESP 20; O2SAT 97
[2023-03-29 08:26] VITALS: BP 116/67; PULSE 59; RESP 19; O2SAT 99
[2023-03-29 08:36] VITALS: BP 137/72; PULSE 64; RESP 18; O2SAT 99
== END 2023-03-29 09:06 | disposition home or self-care (01) ==
PROVIDERS: PCP Nurse Practitioner Family; Visit Provider Internal Medicine Gastroenterology
PROC: 0DJD8ZZ Inspection of Lower Intestinal Tract, Via Natural or Artificial Opening Endoscopic (ICD-10-PCS; CPT 45378; principal; 2023-03-29 08:00)
DX: Z12.11 Encounter for screening for malignant neoplasm of colon (principal); K57.30 Diverticulosis of large intestine without perforation or abscess without bleeding; K62.1 Rectal polyp; J45.909 Unspecified asthma, uncomplicated; I10 Essential (primary) hypertension; F41.9 Anxiety disorder, unspecified; H40.9 Unspecified glaucoma; Z87.891 Personal history of nicotine dependence; E66.9 Obesity, unspecified; Z68.37 Body mass index [BMI] 37.0-37.9, adult; Z79.51 Long term (current) use of inhaled steroids
CPT/HCPCS: 45380; 88305; J2704; J7120

== ENCOUNTER 2023-06-23 08:25 | Outpatient (CLI) | payer OTHER, SELFPAY ==
[2023-06-23 08:51] LABS: Hemoglobin A1C 5.3 % (<5.7)
[2023-06-23 09:47] LABS: Alanine Aminotransferase 24 U/L (14-59); Albumin Level 3.7 g/dL (3.4-5.0); Alkaline Phosphatase 56 U/L (46-116); Anion Gap 12 mmol/L (8-16); Aspartate Amino Transferase 12 U/L (15-37); Bilirubin,Total 0.5 mg/dL (0.00-1.00); Blood Urea Nitrogen 20 mg/dL (7-18); Calcium 9.3 mg/dL (8.5-10.1); Carbon Dioxide 24 mmol/L (21-32); Chloride 103 mmol/L (98-108); Cholesterol 291 mg/dL (0-200); Estimated Glomerular Filt Rate > 60; Glucose 104 mg/dL (70-99); HDL Direct 94 mg/dL (40-60); LDL Cholesterol Calculated 179 mg/dL (<130); Magnesium 2.3 mg/dL (1.8-2.4); Osmolality Calculated 290 mOsm/kg (285-295); Potassium 4.3 mmol/L (3.5-5.1); Sodium 139 mmol/L (136-145); Total Protein 7.2 g/dL (6.4-8.2); Triglycerides 89 mg/dL (0-150)
== END 2023-06-23 08:26 | disposition home or self-care (01) ==
LOC: CHSLAB 08:26
PROVIDERS: PCP Nurse Practitioner Family; Visit Provider Internal Medicine Cardiovascular Disease
DX: E78.5 Hyperlipidemia, unspecified (principal)
CPT/HCPCS: 36415; 80053; 80061; 83036; 83735

== ENCOUNTER → 2023-07-08 10:28 | Outpatient (CLI) | payer OTHER, SELFPAY ==
--- NOTE | ~2023-07-08 | MM_ITS ---
EXAMINATION: MM screening [facility] w tanya HISTORY: Screening mammogram TECHNIQUE: Craniocaudal and mediolateral oblique 3-D tomosynthesis images were obtained and synthetic 2-D images were generated. CAD analysis was submitted and interpreted. COMPARISON: 10/11/2020, 09/22/2019, 09/16/2018 BREAST PARENCHYMAL COMPOSITION: The breasts are almost entirely fatty. FINDINGS: No suspicious mass, calcification, or architectural distortion are identified in either holly ast to suggest malignancy. There has been no suspicious interval change. IMPRESSION: 1. No mammographic evidence of malignancy. 2. Recommend routine screening mammography in one year. BI-RADS Category 1: Negative Reviewed, dictated and finalized at location A. L [employer]
== END ==
PROVIDERS: PCP Nurse Practitioner; Visit Provider Nurse Practitioner
DX: Z12.31 Encounter for screening mammogram for malignant neoplasm of breast (principal)
CPT/HCPCS: 77063; 77067

== ENCOUNTER 2023-10-05 08:39 | Outpatient (CLI) | payer OTHER, SELFPAY ==
[2023-10-05 08:53] LABS: Basophils Absolute Auto 0.04 K/mm3 (0.00-0.10); Basophils Percent Auto 0.4 % (0.0-1.0); Eosinophils Absolute Auto 0.02 K/mm3 (0.02-0.50); Eosinophils Percent Auto 0.2 % (1.0-6.0); Hematocrit 41.6 % (35.0-49.0); Hemoglobin 13.7 g/dL (12.0-15.0); Immature Granulocyte Absolute 0.04 K/mm3 (0.00-0.00); Immature Granulocyte Percent A 0.4 % (0.0-0.0); Lymphocytes Absolute Auto 2.02 K/mm3 (1.10-4.50); Lymphocytes Percent Auto 18.4 % (18.0-42.0); Mean Corpuscular HGB Conc 32.9 g/dL (32.0-36.0); Mean Corpuscular Hemoglobin 29.2 pg (27.0-31.0); Mean Corpuscular Volume 88.7 fL (78.0-102.0); Mean Platelet Volume 10.7 fl (9.2-11.8); Monocytes Absolute Auto 0.72 K/mm3 (0.10-0.90); Monocytes Percent Auto 6.6 % (2.0-11.0); Neutrophils Absolute Auto 8.1 K/mm3 (1.7-7.2); Platelet Count Result 265 K/mm3 (150-420); Red Blood Count 4.69 M/mm3 (4.20-5.40); Red Cell Distribution Width 12.9 % (11.6-14.4)
[2023-10-05 09:01] LABS: Appearance Urine Clear (Clear); Bilirubin Urine Negative (Negative); Blood Urine Negative (Negative); Color Urine Light Yellow (Yellow); Glucose Urine UA Negative (Negative); Ketones Urine Negative (Negative); Leukocyte Esterase Ur 1+ LEU/UL (Negative); Nitrate Urine Negative (Negative); Protein Urine Negative (Negative); Urobilinogen Urine 0.2 mg/dL (0.2-1.0)
[2023-10-05 09:48] LABS: Add Urine Microscopic? YES
[2023-10-05 09:49] LABS: Bacteria Urine Trace /hpf; Mucus Urine Moderate /lpf; RBC Urine None seen /hpf (0-2); Squamous Epithelial Cell Urine Few /hpf (Few); WBC Urine 0-3 /hpf (0-3)
[2023-10-05 10:13] LABS: Alanine Aminotransferase 19 U/L (14-59); Albumin Level 3.8 g/dL (3.4-5.0); Alkaline Phosphatase 48 U/L (46-116); Anion Gap 13 mmol/L (8-16); Aspartate Amino Transferase 11 U/L (15-37); Bilirubin,Total 0.4 mg/dL (0.00-1.00); Blood Urea Nitrogen 23 mg/dL (7-18); Calcium 9.2 mg/dL (8.5-10.1); Carbon Dioxide 25 mmol/L (21-32); Chloride 102 mmol/L (98-108); Estimated Glomerular Filt Rate > 60; Ferritin 144 ng/mL (8-252); Glucose 97 mg/dL (70-99); Iron 118 ug/dL (50-170); Magnesium 2.2 mg/dL (1.8-2.4); Osmolality Calculated 293 mOsm/kg (285-295); Potassium 3.6 mmol/L (3.5-5.1); Sodium 140 mmol/L (136-145); Thyroid Stimulating Hormone 1.27 uIU/mL (0.36-3.74); Total Protein 7.2 g/dL (6.4-8.2); Vitamin B12 1129 pg/mL (193-986)
[2023-10-08 02:39] LABS: Vitamin D 25 Hydroxy 35 ng/mL (30-100)
== END 2023-10-05 08:40 | disposition home or self-care (01) ==
LOC: CHSLAB 08:41
PROVIDERS: PCP Nurse Practitioner Family; Visit Provider Nurse Practitioner Family
DX: R42 Dizziness and giddiness (principal); Z79.899 Other long term (current) drug therapy; E66.9 Obesity, unspecified; Z68.38 Body mass index [BMI] 38.0-38.9, adult
CPT/HCPCS: 36415; 80053; 81001; 82306; 82607; 82728; 83540; 83735; 84439; 84443; 85025; 87077; 87086; 87088

== ENCOUNTER 2023-10-26 09:06 | Outpatient (CLI) | payer OTHER, SELFPAY ==
[2023-10-26 09:20] LABS: Appearance Urine Clear (Clear); Bilirubin Urine Negative (Negative); Blood Urine Negative (Negative); Color Urine Light Yellow (Yellow); Glucose Urine UA Negative (Negative); Ketones Urine Negative (Negative); Leukocyte Esterase Ur 3+ LEU/UL (Negative); Nitrate Urine Negative (Negative); Protein Urine Negative (Negative); Urobilinogen Urine 0.2 mg/dL (0.2-1.0)
[2023-10-26 09:43] LABS: Add Urine Microscopic? YES; Bacteria Urine Trace /hpf; RBC Urine None seen /hpf (0-2); Squamous Epithelial Cell Urine Moderate /hpf (Few)
== END 2023-10-26 09:07 | disposition home or self-care (01) ==
LOC: CHSLAB 09:08
PROVIDERS: PCP Nurse Practitioner Family; Visit Provider Nurse Practitioner Family
DX: R42 Dizziness and giddiness (principal); R82.90 Unspecified abnormal findings in urine
CPT/HCPCS: 81001; 87077; 87086; 87088

== ENCOUNTER 2023-11-12 14:21 | Outpatient (CLI) | payer OTHER, SELFPAY ==
[2023-11-12 14:37] LABS: Appearance Urine Clear (Clear); Bilirubin Urine Negative (Negative); Blood Urine Negative (Negative); Color Urine Light Yellow (Yellow); Glucose Urine UA Negative (Negative); Ketones Urine Negative (Negative); Leukocyte Esterase Ur Negative LEU/UL (Negative); Nitrate Urine Negative (Negative); Protein Urine Negative (Negative); Urobilinogen Urine 0.2 mg/dL (0.2-1.0)
[2023-11-12 14:51] LABS: Add Urine Microscopic? NO
== END 2023-11-12 14:22 | disposition home or self-care (01) ==
LOC: CHSLAB 14:24
PROVIDERS: PCP Nurse Practitioner Family; Visit Provider Nurse Practitioner Family
DX: N39.0 Urinary tract infection, site not specified (principal)
CPT/HCPCS: 81003

== ENCOUNTER 2023-12-28 11:04 | Outpatient (CLI) | payer OTHER, SELFPAY | END 2023-12-28 11:05 | disposition home or self-care (01) | LOC: CHSIMG 11:06 | PROVIDERS: PCP Nurse Practitioner Family; Visit Provider Nurse Practitioner Family | DX: M25.561 Pain in right knee (principal) | CPT/HCPCS: 73562 ==

== ENCOUNTER 2024-01-01 13:37 | Emergency (ER) | payer OTHER, SELFPAY ==
[2024-01-01] VITALS (28 sets, daily range): BP systolic 127–206; BP diastolic 72–87; PULSE 71–88; RESP 15–22; TEMP 37.4; O2SAT 93–99
--- NOTE | ~2024-01-01 | XR_ITS ---
EXAMINATION: XR chest 1V portable Exam Date/Time: 01/01/2024 14:13 CDT HISTORY: chest pain/sob x2 days Comparison: 10/21/2021. RESULT: Lines, tubes, and devices: None. Lungs and pleura: Linear left basilar opacity. Granulomatous calcification. Cardiomediastinal silhouette: Stable. Prominent fat pad. Other: No acute osseous or upper abdominal finding. IMPRESSION: Left basilar scar/atelectasis. Infection not excluded but considered less likely. Reviewed, dictated and finalized at location K. IMPRESSION: Left basilar scar/atelectasis. Infection not excluded but considered less likel y.
--- NOTE | 2024-01-01 13:40 | ECG_ITS ---
SEE SCANNED COPY FOR CONFIRMED REPORT MTDD
[2024-01-01] MEDS: cloNIDine HCL 0.2 MG TABLET PO (14:51)
[2024-01-01 14:53] LABS: Basophils Absolute Auto 0.08 K/mm3 (0.00-0.10); Basophils Percent Auto 0.8 % (0.0-1.0); Eosinophils Absolute Auto 0.04 K/mm3 (0.02-0.50); Eosinophils Percent Auto 0.4 % (1.0-6.0); Hematocrit 41.5 % (35.0-49.0); Hemoglobin 13.5 g/dL (12.0-15.0); Immature Granulocyte Absolute 0.04 K/mm3 (0.00-0.00); Immature Granulocyte Percent A 0.4 % (0.0-0.0); Lymphocytes Absolute Auto 1.16 K/mm3 (1.10-4.50); Lymphocytes Percent Auto 11.9 % (18.0-42.0); Mean Corpuscular HGB Conc 32.5 g/dL (32-36); Mean Corpuscular Hemoglobin 29.2 pg (27.0-31.0); Mean Corpuscular Volume 89.8 fL (78.0-102.0); Monocytes Absolute Auto 0.54 K/mm3 (0.10-0.90); Monocytes Percent Auto 5.5 % (2.0-11.0); Neutrophils Absolute Auto 7.92 K/mm3 (1.70-7.20); Platelet Count Result 244 K/mm3 (150-420); Red Blood Count 4.62 M/mm3 (4.20-5.40); Red Cell Distribution Width 12.6 % (11.6-14.4); White Blood Count 9.8 K/mm3 (4.8-10.8)
[2024-01-01 15:06] LABS: D Dimer 0.34 mg/L (0.19-0.50)
[2024-01-01 15:14] LABS: Alanine Aminotransferase 22 U/L (14-59); Albumin Level 3.8 g/dL (3.4-5.0); Alkaline Phosphatase 52 U/L (46-116); Anion Gap 11 mmol/L (4-12); Aspartate Amino Transferase 13 U/L (15-37); Bilirubin,Total 0.3 mg/dL (0.00-1.00); Blood Urea Nitrogen 25 mg/dL (7-18); Calcium 8.9 mg/dL (8.5-10.1); Carbon Dioxide 27 mmol/L (21-32); Chloride 102 mmol/L (98-108); Estimated CRCL calculation 55 ml/min; Estimated Glomerular Filt Rate 53; Glucose 109 mg/dL (70-99); NT Pro B Type Natriuretic Pept 736 pg/mL (0-125); Osmolality Calculated 295 mOsm/kg (285-295); Potassium 3.9 mmol/L (3.5-5.1); Sodium 140 mmol/L (136-145); Total Protein 7.6 g/dL (6.4-8.2)
[2024-01-01 15:16] LABS: Troponin I 8.6 ng/L (0.00-60.4)
--- NOTE | 2024-01-01 16:23 | ED.ARRPALP ---
HPI - Arrhythmia/Palpitations General Chief Complaint: Arrhythmia/Palpitations Stated Complaint: chest pain Time Seen by Provider: 01/01/24 13:47 Source: patient Mode of arrival: ambulatory Limitations: no limitations History of Present Illness HPI narrative: patient is a 63-year-old female with a significant past medical history that presents today with rhythmic. Patient has some arrhythmia and minor chest pain. She states she has had this since this morning. She does have history of paroxysmal atrial fibrillation. She is on blood thinners and on metoprolol and flecainide for this. She took her medication as prescribed today. She says she also has anxiety so this could be anxiety episode as well. She recently saw the laundry folder. MD complaint: palpitations Onset (ago): hour(s) Duration: intermittent Severity: mild Context: occurred during rest Arrhythmia history: atrial fibrillation Associated symptoms: denies other symptoms Treatments prior to arrival: beta-peri and calcium channel peri Related Data Home Medications Medication Instructions Recorded Confirmed dorzolamide 2 % eye drops 1 drp EACH EYE TID 01/07/21 01/01/24 Natural Vitamin E 180 units PO DAILY 03/18/23 01/01/24 ascorbic acid (vitamin C) 500 mg 500 mg PO DAILY 03/18/23 01/01/24 tablet cetirizine 10 mg tablet 10 mg PO DAILY 03/18/23 01/01/24 cholecalciferol (vitamin D3) 10 10 mcg PO DAILY 03/18/23 01/01/24 mcg (400 unit) tablet (Vitamin D3) losartan 100 mg tablet 100 mg PO DAILY 03/18/23 01/01/24 mecobalamin (vitamin B12) 1,000 1,000 mcg sublingual DAILY 03/18/23 01/01/24 mcg disintegrating tablet,sublingual omega 0-qcy-isz-fish oil 1,000 mg 4 cap PO DAILY 03/18/23 01/01/24 (120 mg-180 mg) capsule (Fish Oil) albuterol sulfate 90 mcg/actuation 1 inh inhalation Q4H PRN Shortness 01/01/24 01/01/24 aerosol inhaler Of Breath hydrochlorothiazide 25 mg tablet 25 mg PO DAILY 01/01/24 01/01/24 rivaroxaban 20 mg tablet (Xarelto) 20 mg PO DAILY 01/01/24 01/01/24 Allergies Allergy/AdvReac Type Severity Reaction Status Date / Time diltiazem Allergy Severe Difficulty Verified 12/28/23 10:59 Breathing Review of Systems Review of Systems: All systems reviewed & are unremarkable except as noted in HPI and below Constitutional: Constitutional: Reports as per HPI Eyes: Eyes: Reports as per HPI ENT: Reports system reviewed and no additional complaints, except as documented Cardiovascular: Cardiovascular: Reports no additional cardiovascular complaints Respiratory: Respiratory: Reports no additional respiratory complaints Gastrointestinal: Gastrointestinal: Reports no additional gastrointestinal complaints Genitourinary: Genitourinary: Reports no additional female genitourinary complaints Musculoskeletal: Musculoskeletal: Reports no additional musculoskeletal complaints Integumentary/Breasts: Skin/Breast: Reports system reviewed and no additional complaints, except as docu Neurologic: Reports system reviewed and no additional complaints, except as documented Psychiatric: Psychiatric: Reports no additional psychiatric complaints Endocrine: Endocrine: Reports no additional endocrine complaints Hematologic/Lymphatic: Hematologic/Lymphatic: Reports no additional hematologic/lymphatic complaints Allergic/Immunologic: Allergic/Immunologic: Reports no additional allergic/immunologic complaints [facility] Past Medical History Medical History Anxiety Asthma Glaucoma Hypertension Family History Family History Father CHF (congestive heart failure) Mother Dementia Sibling Glaucoma Heart valve disorder Other Family history of arthritis Social History Social History Smoking packs per day: 0.5 Smoking cigarettes per day: 10.0 Years smoked: 12
== END 2024-01-01 16:45 | disposition home or self-care (01) ==
PROVIDERS: Emergency Provider Family Medicine; PCP Nurse Practitioner Family
DX: R00.2 Palpitations (principal); R07.9 Chest pain, unspecified; I48.0 Paroxysmal atrial fibrillation; J45.909 Unspecified asthma, uncomplicated; I10 Essential (primary) hypertension; H40.9 Unspecified glaucoma; F41.9 Anxiety disorder, unspecified; Z87.891 Personal history of nicotine dependence; Z79.01 Long term (current) use of anticoagulants; Z79.51 Long term (current) use of inhaled steroids
CPT/HCPCS: 36415; 71045; 80053; 83880; 84484; 85025; 85380; 93005; 99284; A9270

== ENCOUNTER 2024-09-28 14:06 | Outpatient (CLI) | payer MEDICARE, SELFPAY ==
--- NOTE | ~2024-09-28 | DEXA_ITS ---
Bone Density Report Name: KATIE DURAN Age: 64 Sex: Female Ethnicity: White Date of : 1960 Indication: postmenopausal; screening for osteoporosis; asthma or emphysema; Referring Provider: Leticia Ivan Study: Bone densitometry was performed. Exam Date: September 28, 2024 Accession number: [id number] Bone Density: Region BMD T-score Z-score Classification AP Spine(L1, L2, L3) 1.151 1.2 3.0 Normal Femoral Neck (Left) 0.721 -1.2 0.4 Osteopenia Total Hip (Left) 1.039 0.8 2.0 Normal Femoral Neck (Right) 0.758 -0.8 0.7 Normal Total Hip (Right) 1.017 0.6 1.9 Normal Femoral Neck Mean 0.739 -1.0 0.5 Normal Total Hip Mean 1.028 0.7 2.0 Normal World Health Organization criteria for BMD impression classify patients as: Normal (T-score at or above -1.0), Osteopenia (T-score between -1.0 and -2.5), or Osteoporosis (T-score at or below -2.5). 10-year Fracture Risk(1): Major Osteoporotic Fracture 7.4% Hip Fracture 0.6% Reported Risk Factors: [place] (), Neck BMD=0.721, BMI=38.8 (1) FRAX(R) Version 3.08. Fracture probability calculated for an untreated patient. Fracture probability may be lower if the patient has received treatment. Clinical Information Provided by Patient: Has used the following medications: Vitamin D Has the following medical conditions: Asthma or Emphysema Patient maximum height was 63 Menopause Age: 39 Does not regularly consume dairy products Drinks caffeinated beverages Onset of menses at age 12 Number of children 1 Impression: The patient has low bone mass, based on the Left Femoral Neck T-score. Discussion: BONE DENSITY IS LOW AT ONE OR MORE SKELETAL SITES. This patient's lowest T-score is low at one or more skeletal sites. It meets the World Health Organization's (WHO) criteria for ?low bone mass? (T-score between -1.0 and -2.5). The patient's 10-year risk of fracture as calculated by FRAX is less than the threshold where pharmacological therapy is recommended by the National Osteoporosis Foundation (NOF). However, all treatment decisions require clinical judgment and consideration of individual patient factors, including patient preferences, comorbidities, previous drug use, risk factors not captured in the FRAX model (e.g., frailty, falls, vitamin D deficiency, increased bone turnover, interval significant decline in bone density) and possible under or overestimation of fracture risk by FRAX. The patient should follow a healthful lifestyle (good nutrition with adequate calcium and vitamin D, and appropriate weight-bearing exercise). Follow-Up: Consider repeating this study in 2 to 3 years to reassess this patient's status, or sooner if there is some new clinical indication. Reported by: CHERRY on 09/28/2024 2:27:00 PM. Reviewed, dictated and finalized at location A. [facility]ITAL[facility]
--- OUTSIDE RECORDS SUMMARY | 2024-09-28 14:10 | XMS_ITS | Clinical Summary ---
Author Organization [facility] Address [address] [place] [address] Phone Care Team Providers Care Biller Name Role Phone Sybil Francis MD Primary Care Provider [phone] Allergies Active Allergy Reactions Criticality Noted Date Comments Beta-Blockers (Beta-Adrenergic Blocking Agts) Rash Medium 02/10/2016 Brimonidine Itching Low Latanoprost Unknown Travoprost Unknown Venom-Wasp Shortness of breath,Rash High Medications PARoxetine (PAXIL) 20 mg tabletIndicatio ns:Anxiety with Depression Take 20 mg by mouth every morning Active losartan (COZAAR) 50 mg tabletIndicatio ns:hypertension Take 50 mg by mouth every morning 05/27/2018 Active MULTIVITAMIN ORALIndications :supplement Take 1 tablet by mouth every morning Active pyridoxine HCl, vitamin B6, (VITAMIN B-6 ORAL)Indication s:supplement Take 1 tablet by mouth every morning Active docosahexanoic acid/epa (FISH OIL ORAL)Indication s:supplement Take 2,000 mg by mouth 2 (two) times a day Active cetirizine (ZyrTEC) 10 mg tabletIndicatio ns:Seasonal Allergic Rhinitis Take 10 mg by mouth every morning Active vit C/E/Zn/coppr/octaviano tein/zeaxan (PRESERVISION AREDS-2 ORAL)Indication s:eye health Take 1 tablet by mouth 2 (two) times a day Active ascorbic acid (ascorbic acid with gustavo hips) 500 mg tablet,chewable Indications:sup plement Take 500 mg by mouth every morning Active cholecalciferol (cholecalcifero l) 1,000 unit (25 mcg) tabletIndicatio ns:supplement Take 1,000 Units by mouth every morning Active vitamin E 400 unit capsuleIndicati ons:supplement Take 400 Units by mouth every morning Active dorzolamide (TRUSOPT) 2 % ophthalmic solutionIndicat ions:Primary open angle glaucoma (POAG) of left eye, moderate stage INSTILL 1 DROP INTO BOTH EYES 3 TIMES DAILY 40 mL 3 08/21/2021 Active Active Problems Problem Noted Date Diagnosed Date Primary open angle glaucoma (POAG) of left eye, moderate stage 12/13/2018 Assessment & Plan (05/05/2021 8:28 AM CDT): H/o OHTN with steroid use No recent steroid use Remains on dorzolamide TID OU IOP at goal today Given stable HVF/OCT - goal less than 21 Follow 1 year with HVF/OCT - IOP checks with Dr. Cagle [id number] Assessment & Plan (10/21/2020 9:37 AM CYBER THREAT ANALYST): Former Dr. Iglesias patient Polar thinning on OCT and HVF with early arcuate scotoma OS IOP on 1 class is stable mid teens HVF today is stable OCT with artifact Overall doing well from glaucoma standpoint Will alert me if she goes on a topical steroid Follow 6 months IOP check Assessment & Plan (04/22/2020 9:06 AM CDT): Former Dr. Iglesias patient Polar thinning on OCT and HVF with early arcuate scotoma OS On dorzolamide and IOP stable mid-teens Continue current drops Assessment & Plan (09/15/2019 10:28 AM CYBER THREAT ANALYST): Patient returning for late follow-up, 8 months with 24-2 and ON OCT both eyes. Patient is happy with vision when both eyes are open. Did not use drops this morning. IOP's today are stable on dorzolamide right eye. Yuen today are normal right eye, stable, with questionable INS left eye. OCT today is grossly stable, but with significant artifact Recommend using dorzolamide TID in both eyes. RTC 3-4 months IOP check Assessment & Plan (12/29/2018 9:11 AM CDT): IOP stable off gtt. H/o SLT left eye in 08/2017. H/o myopia with myoptic discs OU. +FH glaucoma. Last OCT 05/2018 with ?progression of superior rim thinning from prior in 2017. Last HVF 05/2018 with ?INS left eye. Overall IOP stable off gtt. Patient has had intolerance to numerous gtt in the past. Continue to monitor. Next visit OCT/HVF OU - if any evidence of further progression consider starting gtt versus surgical intervention to lower IOP. Lamellar macular hole, right eye 10/03/2018 Assessment & Plan (05/05/2021 8:27 AM CDT): Follows with Dr. Cagle No indication for surgery at this time Assessment & Plan (10/21/2020 9:36 AM CYBER THREAT ANALYST): S/p multiple surgeries Does not want additional procedures at this time Assessment & Plan (04/22/2020 9:08 AM CDT): S/p PPV OD Dr. Zhu recommended additional PPV with SO fill Second opinion from [facility], recommended surgery as well Pending decision from patient given elevated IOP last visit Sounds like spiked to 40 with steroids and can down instantly - would not recommend concurrent glaucoma/retina surgery since IOP issue is steroid responsive at this time - can maximize topical therapy or weaker steroid formulation Assessment & Plan (10/04/2019 8:49 AM CYBER THREAT ANALYST): IOP okay, keep scheduled appointment. Assessment & Plan (07/06/2019 9:36 AM CYBER THREAT ANALYST): The macular hole appears open despite her last surgery. We reviewed options which include observation versus repeat surgery which may include membrane removal as well as the possibility of silicone oil injection to the Right eye. Risks, benefits and alternatives for surgery include by not limited to infection, bleeding, damage to the eye, loss of vision, loss of the eye,deformity, diplopia, increased IOP, cataract, need for new refraction, RD, RT, gas injection, post op positioning, altitude precautions, silicone oil placement, need for additional surgery, inflammation to one or both eyes, no guarantees were made, and the guarded prognosis was discussed with the patient. Reviewed with them that is a teaching institution and that trainees, medical students, residents, fellows may be involved in their care.They understand and wish to proceed. We will plan for repeat vitrectomy membrane stripping silicone oil injection to the right eye. Assessment & Plan (06/08/2019 9:35 AM CDT): One week following repair macular hole right eye, doing well however has elevated intra-ocular pressure. Recommend decreasing Pred Forte to twice a day for a week then once a day for a week then stopping its use altogether. Recommend discontinue tobramycin. Patient is without heart trouble or lung trouble, however is allergic to beta-blockers, will start Trusopt 3 times a day a day to the right eye. Recommend pressure check in roughly a week's time and office visit in roughly a month. Assessment & Plan (05/31/2019 8:31 AM CDT): One day status post PPV/laser/cryo/MS/Gas to the right eye. Doing well. Shield operated eye, Tobramycin 4x/day and Predforte 4x/day Return to clinic in one week. Signs and symptoms of retinal detachment, tears and endophthalmitis, elevated pressure reviewed with patient. Post Op Position:Face Down. Altitude precautions were reviewed with patient. No strenuous activity. Assessment & Plan (05/04/2019 10:52 AM CDT): Unfortunately the lamellar macular hole has become a full-thickness macular hole in the right eye. I recommend that she consider vitrectomy surgery membrane stripping and gas bubble placement to close the macular hole in the right eye. Risks, benefits and alternatives for surgery include by not limited to infection, bleeding, damage to the eye, loss of vision, loss of the eye,deformity, diplopia, increased IOP, cataract, need for new refraction, RD, RT, gas injection, post op positioning, altitude precautions, silicone oil placement, need for additional surgery, inflammation to one or both eyes, no guarantees were made, and the guarded prognosis was discussed with the patient. Reviewed with them that is a teaching institution and that trainees, medical students, residents, fellows may be involved in their care.They understand and wish to proceed. Assessment & Plan (10/03/2018 10:27 AM CYBER THREAT ANALYST): This patient has been referred to the retina clinic by Dr. Iglesias. The patient is found to have a lamellar macular hole in the right eye with vision at the 20/80-level. The patient notes that the vision has always been down on the right side having had a history of amblyopia and eye-muscle surgery in the past. The patient has had cataract surgery on this side as well. It is unclear the visual potential for this eye given the history of amblyopia and the risks to surgery, the patient will think about performing surgery. Lattice degeneration of both retinas 06/16/2018 Assessment & Plan (12/29/2018 8:43 AM CDT): DFE stable. No evidence of active RT/RD. Peripheral laser scars, degenerative change all stable with last retina note. Follows with Dr Zhu. - Discussed S/S RT/RD. Patient knows to call with any changes. Strict return precautions. Amblyopia, strabismic, right 06/16/2018 Primary open angle glaucoma (POAG) of right eye, mild stage 06/14/2018 Assessment & Plan (04/22/2020 9:08 AM CDT): Secondary open angle glaucoma OD S/p PPV for macular hole - still open Mild thinning on OCT, full HVF last visit Seen by Dr. Iglesias, added dorzolamide last visit On 1 class and IOP improved, ok mid teens Follow 6 months with HVF/OCT Assessment & Plan (12/29/2018 9:17 AM CDT): H/o SLT right eye in 04/2018. Borderline intraocular pressures. F/u imaging in 3 MO. Pseudophakia of both eyes 02/05/2011 Assessment & Plan (09/14/2019 2:02 PM CYBER THREAT ANALYST): Lenses in place/clear. CRISTIAN Dias scribing for, and in the presence of, Eduardo Iglesias MD Assessment & Plan (12/29/2018 9:21 AM CDT): Lenses in place and clear. Monitor. I am scribing in the presence of Dr. Iglesias on 12/29/2018, CRISTIAN Garcia. Assessment & Plan (10/03/2018 10:27 AM CYBER THREAT ANALYST): -Stable, continue to monitor -Signs and symptoms of retinal detachment and tears discussed with the patient Resolved Problems Problem Noted Date Diagnosed Date Resolved Date Lamellar macular hole of right eye 05/17/2019 05/31/2019 Overview (05/17/2019): Added automatically from request for surgery [id number] Epiretinal membrane (ERM) of right eye 10/03/2018 05/31/2019 Assessment & Plan (10/03/2018 10:51 AM CYBER THREAT ANALYST): -seen on OCT, may be contributing to decreased vision secondary to lamellar hole as well. Reviewed the possibility of surgery to remove the epiretinal membrane, however considering the aforementioned other ocular conditions and history of amblyopia in the right eye I am uncertain exactly how much vision would return to this right eye. At this point recommend observation, should things worsen be happy to re- evaluate in the future. I have asked that she return to see us roughly 6 months time. Retinal hole of both eyes 10/03/2018 Assessment & Plan (10/03/2018 10:39 AM CYBER THREAT ANALYST): OD: temporally located - recommend laser at the time of surgery for the right eye to close holes vs. In-clinic PRP for RD prophylaxis OS: inferiorly located, well-demarcated with laser and scleral buckle Dermatochalasis 01/30/2010 06/14/2018 Surgical History Surgery Date Site/Laterality Comments OOPHERECTOMY 08/23/1988 - 08/22/1989 Left EYE SURGERY Bilateral CATARACT EXTRACTION W/ INTRAOCULAR LENS IMPLANT 08/23/2008 - 08/22/2009 Bilateral COLONOSCOPY 2013 didn't take much anesthesia VITRECTOMY Left torn retina VITRECTOMY 05/30/2019 Right MH repair by Dr. Zhu Medical History Medical History Date Comments Age-related nuclear cataract Sen ile nuclear cataract - (Added by TW Conv) Open angle with borderline f indings and low glaucoma risk in both eyes Borderline glaucoma, op en angle with borderline findings, bilateral - (Added by TW Conv) Hypertension Family History Medical History Relation Name Comments Anesthesia problems Neg Hx Social History Tobacco Use Types Packs/Day Years Used Date Smoking Tobacco: Former Cigarettes Q uit: 1996 Smokeless Tobacco: Never Alcohol Use Standard Drinks/Week Comments Yes 7 (1 standard drink = 0.6 oz pur e alcohol) Comments No Sex and Gender Information Value Date Recorded Sex Assigned at Not on file Legal Sex Female 12:23 AM CYBER THREAT ANALYST Gender Identity Not on file Sexual Orientation Not on file Obstetrics History Last Filed Vital Signs Vital Sign Reading Time Taken Comments Blood Pressure 128/72 05/30/2019 8:52 AM CDT Pulse 73 05/30/2019 8:52 AM CDT Temperature 36.6 C (97.9 F) 05/30/2019 8:52 AM CDT Respiratory Rate 16 05/30/2019 8:52 AM CDT Oxygen Saturation 94% 05/30/2019 8:52 AM CDT Inhaled Oxygen Concentration - - Weight 93 kg (205 lb) 05/22/2019 1:05 PM CDT Height 160 cm (5' 3 ) 05/22/2019 1:05 PM CDT Body Mass Index 36.31 05/22/2019 1:05 PM CDT Plan of Treatment Not on file Insurance [facility] CHO[facility] PLUS [facility] CHO[facility] PL[facility] Care Teams Biller Relationship Specialty Start Date End Date Sybil Francis MD PCP - General 03/19/10
--- OUTSIDE RECORDS SUMMARY | 2024-09-28 14:10 | XMS_ITS | Referral Summary ---
Author Organization [facility] Address [address] [place] [address] Phone Care Team Providers Care Automotive Technician Name Role Phone Sybil Francis MD Primary Care Provider [phone] Allergies Active Allergy Reactions Criticality Noted Date [...] HVF/OCT - IOP checks with Dr. Cagle [id number] Assessment & Plan (10/21/2020 9:37 AM MMA FIGHTER): Former Dr. Iglesias patient Polar thinning on [...] drops Assessment & Plan (09/15/2019 10:28 AM MMA FIGHTER): Patient returning for late follow-up, 8 months [...] time Assessment & Plan (10/21/2020 9:36 AM MMA FIGHTER): S/p multiple surgeries Does not want additional [...] formulation Assessment & Plan (10/04/2019 8:49 AM MMA FIGHTER): IOP okay, keep scheduled appointment. Assessment & Plan (07/06/2019 9:36 AM MMA FIGHTER): The macular hole appears open despite her [...] proceed. Assessment & Plan (10/03/2018 10:27 AM MMA FIGHTER): This patient has been referred to the [...] 02/05/2011 Assessment & Plan (09/14/2019 2:02 PM MMA FIGHTER): Lenses in place/clear. CRISTIAN Dias scribing for, and in the presence of, Eduardo Iglesias MD Assessment & Plan (12/29/2018 9:21 AM CDT): Lenses in place and clear. Monitor. I am scribing in the presence of Dr. Iglesias on 12/29/2018, CRISTIAN Garcia. Assessment & Plan (10/03/2018 10:27 AM MMA FIGHTER): -Stable, continue to monitor -Signs and symptoms of retinal detachment and tears discussed with the patient Resolved Problems Problem Noted Date Diagnosed Date Resolved Date Lamellar macular hole of right eye 05/17/2019 05/31/2019 Overview (05/17/2019): Added automatically from request for surgery [id number] Epiretinal membrane (ERM) of right eye 10/03/2018 05/31/2019 Assessment & Plan (10/03/2018 10:51 AM MMA FIGHTER): -seen on OCT, may be contributing to [...] 10/03/2018 Assessment & Plan (10/03/2018 10:39 AM MMA FIGHTER): OD: temporally located - recommend laser at the time of surgery for the right eye to close holes vs. In-clinic PRP for RD prophylaxis OS: inferiorly located, well-demarcated with laser and scleral buckle Dermatochalasis 01/30/2010 06/14/2018 Social History Tobacco Use Types Packs/Day Years Used Date Smoking Tobacco: Former Cigarettes Q uit: 1996 Smokeless Tobacco: Never Alcohol Use Standard Drinks/Week Comments Yes 7 (1 standard drink = 0.6 oz pur e alcohol) Comments No Sex and Gender Information Value Date Recorded Sex Assigned at Not on file Legal Sex Female 12:23 AM MMA FIGHTER Gender Identity Not on file Sexual Orientation Not on file Last Filed Vital Signs Vital Sign Reading [...] Plan of Treatment Not on file Insurance [facility] CHO[facility] PLUS [facility] Care Teams Automotive Technician Relationship Specialty Start Date End Date Sybil Francis MD PCP - General 03/19/10
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
--- OUTSIDE RECORDS SUMMARY | 2024-09-28 14:11 | XMS_ITS | Clinical Summary ---
Author Organization [facility] [employer] Address [address] [place] [address] Care Team Providers Care Butcher Name Role Phone Kike Ferro MD Unavailable Urmila Mason QUALITY ASSURANCE AUDITOR-PLANT PROTECTION SUPERVISOR Primary Care Provid er Source Comments [facility],non-owned Affiliates and Associated Physician Practices is amultiple site organization consisting of ambulatory clinics and hospital sitesin [place] and [place]. This disclosure is being madepursuant to the Care Everywhere program and may not contain all information available regarding this patient. Last updated 18.[facility] [employer] Allergies Active Allergy Reactions Criticality Noted Date Comments Beta Adrenergic Blockers 07/26/2016 Medications * Be aware that medications may not be up to date on this document. Alwaysverify current medications with the patient. Medication Sig Dispensed Refills Start Date End Date Status dorzolamide (Trusopt) 2 % ophthalmic solution Instill 1 (one) drop into both eyes 3 times daily 11/25/2023 Active cetirizine (ZyrTEC) 10 MG tablet Take 1 (one) tablet by mouth every morning Active Cholecalciferol (Vitamin D-[address]) 25 MCG (1000 UT) Take 1 (one) tablet by mouth every morning Active vitamin E (Tocopheryl) 400 UNIT capsule Take 1 (one) capsule by mouth once daily Active Ascorbic Acid 500 MG Take 500 mg by mouth once daily Active losartan (Cozaar) 100 MG tablet Take 1 (one) tablet by mouth once daily 12/22/2023 Active albuterol HFA (Proventil; Ventolin; Proair) 108 (90 Base) MCG/ACT inhaler Inhale 2 (two) puffs by mouth every 4 hours 11/02/2023 Active hydroCHLOROthiazi de (Hydrodiuril) 25 MG tablet Take 1 (one) tablet by mouth once daily 12/17/2023 Active PARoxetine (Paxil) 20 MG tablet TAKE 1 & 1/2 TABLETS (30MG) BY MOUTH DAILY 01/03/2024 Active dabigatran (Pradaxa) 150 MG capsule Take 1 (one) capsule by mouth 2 times daily 180 capsule 3 09/20/2024 Active metoprolol succinate XL 24hr (Toprol XL) 25 MG tablet Take 0.5 (one-half) tablet by mouth once daily 15 tablet 11 09/28/2024 Active metoprolol succinate XL 24hr (Toprol XL) 25 MG tablet Take 1 (one) tablet by mouth once daily 12/22/2023 09/25/2024 Discontinued (Reorder) Xarelto 20 MG tablet Take 1 (one) tablet by mouth daily with food 12/14/2023 09/11/2024 Discontinued (Cost of Medication) dabigatran (Pradaxa) 150 MG capsule Take 1 (one) capsule by mouth 2 times daily 60 capsule 11 09/11/2024 09/20/2024 Discontinued (Reorder) Active Problems No known active problems Encounters Date Type Department Care Team Description 09/25/2024 Refill [facility] [address], [address] [address] Kike Ferro MD MEDICATION REFILL 09/20/2024 Refill [facility] Care [address] [place] [address], [address] [address] Kike Ferro MD MEDICATION REFILL 09/20/2024 Telephone [facility] [address] [place] [address], [address] [address] Kike Ferro MD Medication Issue 09/11/2024 Refill [facility] & [facility] [address], [address] [address] Kike Ferro MD MEDICATION REFILL 09/11/2024 Orders Only [facility] [address], [address] [address] Kike Ferro MD 09/11/2024 Telephone [facility] [place] [address] [facility], [address] [place] [address] Kike Ferro MD Med Change Request 07/27/2024 10:30 AM BANKING TEACHER Office Visit [facility] [address], [address] [address] Kike Ferro MD Atrial flutter, unspecified type (HCC) (Primary Dx) 07/27/2024 Travel from Last 3 Months Immunizations Name Administration Dates Next Due FLU VACCINE QUAD IIV4 PF ID 07/26/2016 Social History Tobacco Use Types Packs/Day Years Used Date Smoking Tobacco: Never Smokeless Tobacco: Never Tobacco Cessation:Counseling Given: Not Answered Sex and Gender Information Value Date Recorded Sex Assigned at Not on file Gender Identity Not on file Sexual Orientation Not on file Last Filed Vital Signs Vital Sign Reading Time Taken Comments Blood Pressure 138/75 07/27/2024 10:22 AM BANKING TEACHER Pulse 66 07/27/2024 10:22 AM BANKING TEACHER Temperature - - Respiratory Rate - - Oxygen Saturation 98% 01/20/2024 3:10 PM CDT Inhaled Oxygen Concentration - - Weight 100.5 kg (221 lb 9.6 oz) 024 10:22 AM BANKING TEACHER Height 160 cm (5' 2.99 ) 07/27/2024 10: 22 AM BANKING TEACHER Body Mass Index 39.26 07/27/2024 10:22 AM BANKING TEACHER Plan of Treatment Upcoming Encounters Date Type Department Care Team (Late st Contact Info) Description 01/30/2025 10:50 AM CDT Office Visit [facility] [address], [address] [place] [address] [place] [id number] [id number] Health Maintenance Due Date Last Done Comments BONE DENSITY TESTING 1960 COLOGUARD (AGES 45-75) - COLON CA SCREENING 1959 COLON MONITORING 1959 COLONOSCOPY - COLON CA SCREENING 1959 CT COLONOGRAPHY - COLON CA SCREENING 1959 Colorectal Cancer Screening 1959 FIT - COLON CA SCREENING 1959 FLEX SIG - COLON CA SCREENING 1959 LIPID TESTING 1959 HIV SCREENING 1974 HEPATITIS C SCREENING 03/12/1977 DTAP/TDAP/TD VACCINES (1 - Tdap) 1978 PNEUMOCOCCAL VACCINE 50+ (1 of 1 - PCV) 2009 ZOSTER VACCINE (1 of 2) 2009 SCREENING FOR DIABETES 01/05/2024 MAMMOGRAM 01/13/2024 01/12/2022, 01/12/2022 COVID-19 VACCINE (2 - season) 2024 10/25/2020 INFLUENZA VACCINE (#1) 2024 , 05/24/2020, 05/24/2018, Additional history exists DEPRESSION SCREENING 08/23/2024 MEDICARE AWV CALENDAR YEAR 2024 PAP SMEAR 01/12/2025 01/12/2022 Respiratory Syncytial Virus (RSV) Vaccine Pt: or over 60 yrs (1 - 1-dose 75+ series) 2034 HEPATITIS B VACCINE Aged Out No longe r eligible based on patient's age to complete this topic HIB VACCINE Aged Out No longer eligi ble based on patient's age to complete this topic HPV VACCINE Aged Out No longer eligi ble based on patient's age to complete this topic MENINGOCOCCAL (Group B) VACCINE Aged Out No longer eligible based on patient's age to complete this topic MENINGOCOCCAL VACCINE Aged Out No radha lucas eligible based on patient's age to complete this topic Care Teams Butcher Relationship Specialty Start Date End Date Urmila Mason, QUALITY ASSURANCE AUDITOR-PLANT PROTECTION SUPERVISOR [address] [place] [address] PCP - General Nurse Practitioner Family 09/25/24 [place] [address] [id number] Physician Cardiovascular Disease 01/05/24
--- OUTSIDE RECORDS SUMMARY | 2024-09-28 14:11 | XMS_ITS | Encounter Summary ---
Author Organization [facility] Address [address] [place] [address] Care Team Providers Care Veneer Measurer Name Role Phone Kike Ferro MD Unavailable Urmila Mason Primary Care Provid er Reason for Visit * Reason Onset Date Comments MEDICATION REFILL 09/25/2024 Encounter Details Date Type Department Care Team (Late st Contact Info) Description 09/25/2024 Refill [facility] Health Heart & Vascular Care [address] [facility], [address] [address] [place] [address] [address] MEDICATION REFILL Social History Tobacco Use Types Packs/Day Years Used Date Smoking Tobacco: Never Smokeless Tobacco: Never Sex and Gender Information Value Date Recorded Sex Assigned at Not on file Gender Identity Not on file Sexual Orientation Not on file documented as of this encounter Plan of Treatment Upcoming Encounters Date Type Department Care Team (Late st Contact Info) Description 01/30/2025 10:50 AM CDT Office Visit [facility] Health Heart & Vascular Care [address] [facility], [address] [address] [place] [address] [address] documented as of this encounter Visit Diagnoses Not on filedocumented in this encounter Care Teams Veneer Measurer Relationship Specialty Start Date End Date Urmila Mason APRN-CNP [address] [place] [address] PCP - General Nurse Practitioner Family 09/25/24 [place] [address] [address] Physician Cardiovascular Disease 01/05/24 documented as of this encounter
--- OUTSIDE RECORDS SUMMARY | 2024-09-28 14:11 | XMS_ITS | Referral Summary ---
Author Organization [facility] Address [address] [place] [address] Care Team Providers Care Cart Driver Name Role Phone Kike Ferro MD Unavailable Urmila Mason PUBLIC HEALTH AIDES TEACHER-CONTRACT ENGINEER Primary Care Provid er Source Comments [facility],non-owned Affiliates and Associated Physician Practices is amultiple site organization consisting of ambulatory clinics and hospital sitesin [place], [place], [place] and [place]. This disclosure is being madepursuant to the Care Everywhere program and may not contain all information available regarding this patient. Last updated 18.[facility] Encounters Date Type Department Care Team Description 09/25/2024 Refill [facility] Care [address] [place] [address], [address] [place] [address] Kike Ferro MD MEDICATION REFILL 09/20/2024 Refill [facility] & [facility] [address], [address] [address] Kike Ferro MD MEDICATION REFILL 09/20/2024 Telephone [facility] Care [address] [place] [address], [address] [address] Kike Ferro MD Medication Issue 09/11/2024 Refill [facility] & V[facility] [address], [address] [address] Kike Ferro MD MEDICATION REFILL 09/11/2024 Orders Only [facility] [address], [facility] [address] [place] [address] Kike Ferro MD 09/11/2024 Telephone [facility] [address] [facility], [address] [place] [address] Kike Ferro MD Med Change Request 07/27/2024 Travel 07/27/2024 10:30 AM BUFFING AND SUEDING MACHINE OPERATOR Office Visit [facility] V[facility] [address] [facility], [address] [place] [address] Kike Ferro MD Atrial flutter, unspecified type (HCC) (Primary Dx) from Last 3 Months Allergies Active Allergy Reactions Criticality Noted Date [...] by mouth 2 times daily 60 capsule 09/11/2024 09/20/2024 Discontinued (Reorder) Active Problems No known active problems Immunizations Name Administration Dates Next Due FLU [...] Comments Blood Pressure 138/75 07/27/2024 10:22 AM BUFFING AND SUEDING MACHINE OPERATOR Pulse 66 07/27/2024 10:22 AM BUFFING AND SUEDING MACHINE OPERATOR Temperature - - Respiratory Rate - - Oxygen Saturation 98% 01/20/2024 3:10 PM CDT Inhaled Oxygen Concentration - - Weight 100.5 kg (221 lb 9.6 oz) 024 10:22 AM BUFFING AND SUEDING MACHINE OPERATOR Height 160 cm (5' 2.99 ) 07/27/2024 10: 22 AM BUFFING AND SUEDING MACHINE OPERATOR Body Mass Index 39.26 07/27/2024 10:22 AM BUFFING AND SUEDING MACHINE OPERATOR Plan of Treatment Upcoming Encounters Date Type Department Care Team (Late st Contact Info) Description 01/30/2025 10:50 AM CDT Office Visit [facility] Health Heart & Vascular Care [address] [address] [place] [address] [address] Care Teams Cart Driver Relationship Specialty Start Date End Date Urmila Mason, PUBLIC HEALTH AIDES TEACHER-CONTRACT ENGINEER [address] [place] [address] PCP - General Nurse Practitioner Family 09/25/24 [place] [address] [address] Physician Cardiovascular Disease 01/05/24
--- OUTSIDE RECORDS SUMMARY | 2024-09-28 14:11 | XMS_ITS | Clinical Summary ---
Author Organization [facility] Address [facility] [place] [address] Care Team Providers Care Gristmiller Name Role Phone Ember Xiao Primary Care Provider [phone] Allergies Active Allergy Reactions Criticality Noted Date Comments Beta Adrenergic Blockers Rash Medium 02/10/2016 Brimonidine Itching Low 01/12/2022 Latanoprost Unknown 01/12/2022 Travoprost Unknown 01/12/2022 Wasp Venom Protein Rash,Shortness of Breath High Medications vitamin C 500 MG Chew Tab chewable tablet Chew 500 mg by mouth in the morning. Active cetirizine 10 MG tablet Take 10 mg by mouth in the morning. Active vitamin D3, cholecalciferol , 1000 UNIT Tab tablet Take 1,000 Units by mouth in the morning. Active cholestyramine 4 G packet PLEASE SEE ATTACHED FOR DETAILED DIRECTIONS 1 Active cyclobenzaprine 5 MG tablet TAKE 1 TABLET BY MOUTH 3 TIMES PER DAY NEEDED 1 Active dorzolamide 2 % ophthalmic solution Place 1 drop into both eyes in the morning and 1 drop in the evening and 1 drop before bedtime. 2 Active losartan 100 MG tablet Take 100 mg by mouth in the morning. 2 Active PARoxetine 20 MG tablet Take 20 mg by mouth in the morning. Active vitamin E 400 UNIT capsule Take 400 Units by mouth in the morning. Active albuterol sulfate HFA 108 (90 Base) MCG/ACT inhaler Inhale 2 puffs into the lungs every 6 (six) hours as needed for Wheezing (prn). Active Active Problems Problem Noted Date Diagnosed Date Retinal tear of left eye 01/12/2022 Immunizations Name Administration Dates Next Due Fluzone Intradermal Quad (IIV4) 07/26/2016 Influenza Adult (Generic) 06/20/2021,05/24/2020, 05/24/2018 MODERNA COVID-19 (12+) MRNA, LNP-S, PF, 100 MCG/ 0.5 ML DOSE 10/25/2020 Shingrix 06/06/2021,03/06/2021 Tdap (Generic) 03/06/2021 Family History Medical History Relation Comments Heart Disease Father Mental Health Mother Breast Cancer Neg Hx Relation Status Comments Father Mother Social History Tobacco Use Types Packs/Day Years Used Date Smoking Tobacco: Every Day Cigarettes 0.5 12 Smokeless Tobacco: Never Tobacco Cessation:Ready to Q uit: No; Counseling Given: No Alcohol Use Standard Drinks/Week Comments Yes 0 (1 standard drink = 0.6 oz pur e alcohol) social PHQ-2 Answer Date Recorded PHQ-2 Score - If the patient scores above 3, please move on to questions 3-9 0 01/12/2022 Comments No Sex and Gender Information Value Date Recorded Sex Assigned at Not on file Legal Sex Female 12:05 PM CDT Gender Identity Not on file Sexual Orientation Not on file Last Filed Vital Signs Vital Sign Reading Time Taken Comments Blood Pressure 124/80 01/12/2022 8:10 AM CDT Pulse 65 01/12/2022 8:10 AM CDT Temperature 36.3 C (97.3 F) 01/12/2022 8:10 AM CDT Respiratory Rate 15 01/12/2022 8:10 AM CDT Oxygen Saturation 98% 01/12/2022 8:10 AM CDT Inhaled Oxygen Concentration - - Weight 97.8 kg (215 lb 9.6 oz) 01/12/2022 8:10 A M CDT Height 160 cm (5' 3 ) 01/12/2022 8:10 AM CDT Body Mass Index 38.19 01/12/2022 8:10 AM CDT Plan of Treatment Health Maintenance Due Date Last Done Comments Colorectal Cancer Screening Colonoscopy (10 Years) 1959 Pneumococcal Vaccine: 65+ Years (1 of 2 - PCV) 1965 Pneumococcal Vaccine: Pediatrics (0 to 5 Years) and At-Risk Patients (6 to 64 Years) (1 of 2 - PCV) 1965 Hepatitis C 1977 Mammogram Screening 01/13/2024 01/12/2022 Dexa Scan (General) 2024 COVID-19 Vaccine (4 - season) 2024 07/21/2021, 11/22/2020, 10/25/2020 Influenza Adult (#1) 2024 06/20/2021, 05/24/2020, 05/24/2018, Additional history exists DTaP, Tdap and Td Vaccines (2 - Td or Tdap) 03/06/2031 03/06/2021 RSV Immunization or 60+ Years (1 - 1-dose 75+ series) 2034 Zoster Vaccines Completed 06/06/2021, 03/06/2021 Meningococcal B Vaccine Aged Out No l onger eligible based on patient's age to complete this topic Meningococcal Vaccine Aged Out No radha lucas eligible based on patient's age to complete this topic RSV Immunizations Under 20 Months Aged Out No longer eligible based on patient's age to complete this topic Procedures Procedure Name Priority Date/Time Associated Diagnosis Comments MG SCREENING W GILDA VINCE DIGI Routine 01/12/2022 9:42 AM CDT Encounter for screening mammogram for breast cancer from Last 3 Months or Most Recently Relevant to Health Maintenance Results * MG SCREENING W GILDA VINCE DIGI (01/12/2022 9:42 AM CDT) Anatomical Region Laterality Modality Breast Bilateral Mammography 01/15/2022 1:00 PM CDT Impressions 01/15/2022 1:25 PM CDT IMPRESSION: No radiographic evidence of malignancy identified in either breast. BI-RADS Category: Category 1 - negative. Mammography recheck suggested in one year. A) A negative report should not delay a biopsy if a dominant or clinically suspicious mass is present. B) Adenosis and dense breasts may obscure an underlying neoplasm. C) Study interpreted with computer-aided detection. MQSA BI-RADS Categories: Category 0 - needs additional imaging evaluation. Category 1 - negative. Category 2 - benign findings. Category 3 - probably benign findings, but short interval followup is recommended. Category 4 - suspicious abnormality-biopsy should be considered. Category 5 - highly suggestive of malignancy and appropriate action should be taken. Category 6 - known biopsy-proven malignancy Ordered By: EMBER XIAO Interpreted By: Mayank Red, 01/15/2022 1:00 PM Narrative 01/15/2022 1:25 PM CDT BILATERAL DIGITAL SCREENING MAMMOGRAPHY WITH COMPUTER-AIDED DETECTION AND 3-D TOMOSYNTHESIS 01/12/2022 9:08 AM HISTORY: No complaints listed referable to either breast. Screening examination. FINDINGS: Digital 2-D mammography and 3-D tomosynthesis performed of both breasts. There are scattered areas of fibroglandular density. Breast parenchymal pattern similar to prior studies reviewed dating back to 08/31/2017. No specific finding of malignancy identified in either breast. Ember GALLEGOS MAMMO Final Result from Last 3 Months or Most Recently Relevant to Health Maintenance Insurance Care Teams Gristmiller Relationship Specialty [place] [address] [place] [address] PCP - General PHYSICIAN BODY ARTIST 01/12/22
--- OUTSIDE RECORDS SUMMARY | 2024-09-28 14:11 | XMS_ITS | Patient Health Summary ---
Author Organization [facility] Address [address] [place] [address] Care Team Providers Care Jute Bag Sewer Name Role Phone Kike Ferro MD Unavailable Urmila Mason APRN-TOURIST ADVISER Primary Care Provid er Note from [facility],non-owned Affiliates and Associated Physician Practices is amultiple site organization consisting of ambulatory clinics and hospital sitesin [place], [place], [place] and [place]. This disclosure is being madepursuant to the Care Everywhere program and may not contain all information available regarding this patient. Last updated 18.[facility] Allergies * Beta Adrenergic Blockers Medications * Be aware that medications may not be up to date on this document. Alwaysverify current medications with the patient. * dorzolamide (Trusopt) 2 % ophthalmic solution(Started 11/25/2023) Instill 1 (one) drop into both eyes 3 times daily * cetirizine (ZyrTEC) 10 MG tablet Take 1 (one) tablet by mouth every morning * Cholecalciferol (Vitamin D-[address]) 25 MCG (1000 UT) Take 1 (one) tablet by mouth every morning * vitamin E (Tocopheryl) 400 UNIT capsule Take 1 (one) capsule by mouth once daily * Ascorbic Acid 500 MG Take 500 mg by mouth once daily * losartan (Cozaar) 100 MG tablet(Started 12/22/2023) Take 1 (one) tablet by mouth once daily * albuterol HFA (Proventil; Ventolin; Proair) 108 (90 Base) MCG/ACT inhaler (Started 11/02/2023) Inhale 2 (two) puffs by mouth every 4 hours * hydroCHLOROthiazide (Hydrodiuril) 25 MG tablet(Started 12/17/2023) Take 1 (one) tablet by mouth once daily * PARoxetine (Paxil) 20 MG tablet(Started 01/03/2024) TAKE 1 & 1/2 TABLETS (30MG) BY MOUTH DAILY * dabigatran (Pradaxa) 150 MG capsule(Started 09/20/2024) Take 1 (one) capsule by mouth 2 times daily 3 refills by 09/20/2025 * metoprolol succinate XL 24hr (Toprol XL) 25 MG tablet(Started 09/28/2024) Take 0.5 (one-half) tablet by mouth once daily 11 refills by 09/28/2025 Ended Medications* metoprolol succinate XL 24hr (Toprol XL) 25 MG tablet(Started 12/22/2023)(Discontinued) Take 1 (one) tablet by mouth once daily * Xarelto 20 MG tablet(Started 12/14/2023)(Discontinued) Take 1 (one) tablet by mouth daily with food * dabigatran (Pradaxa) 150 MG capsule(Started 09/11/2024)(Discontinued) Take 1 (one) capsule by mouth 2 times daily 11 refills by 09/11/2025 Active Problems No known active problems Immunizations * FLU VACCINE QUAD IIV4 PF ID(Given 07/26/2016) Social History Tobacco Use Types Packs/Day Years Used Date Smoking Tobacco: Never Smokeless Tobacco: Never Tobacco Cessation:Counseling Given: Not Answered Sex and Gender Information Value Date Recorded Sex Assigned at Not on file Gender Identity Not on file Sexual Orientation Not on file Last Filed Vital Signs Vital Sign Reading Time Taken Comments Blood Pressure 138/75 07/27/2024 10:22 AM 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 FITTER Pulse 66 07/27/2024 10:22 AM 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TER Temperature - - Respiratory Rate - - Oxygen Saturation 98% 01/20/2024 3:10 PM CDT Inhaled Oxygen Concentration - - Weight 100.5 kg (221 lb 9.6 oz) 024 10:22 AM 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TER Height 160 cm (5' 2.99 ) 07/27/2024 10: 22 AM 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 FITTER Body Mass Index 39.26 07/27/2024 10:22 AM 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 FITTER Procedures * ECHO COMPLETE(Performed 01/20/2024) Performed for Atrial flutter, unspecified type (HCC), Essential hypertension * NM MYOCARD PERF REST STRESS(Performed 01/10/2024) Performed for Atrial flutter, unspecified type (HCC), Essential hypertension * STRESS TEST(Performed 01/10/2024) Performed for Atrial flutter, unspecified type (HCC), Essential hypertension * EKG 12-LEAD(Performed 01/05/2024) Performed for Atrial flutter, unspecified type (HCC), Essential hypertension Results * ECHO COMPLETE (01/20/2024 3:36 PM CDT) BSA 2.6339340 [id number] m2 SSM CV FUJI PACS LVOT stroke vol 89.85 mL SSM CV FUJI PACS LVOT stroke vol index 42.39 mL/m2 SSM CV FUJI PACS LV stroke vol 2D teich 95.06 ml SSM CV FUJI PACS LV Stroke Index 2D Teich 44.85 mL/m2 SSM CV FUJI PACS AV envelope time 348 ms SSM CV FUJI PACS LVOT envelope time 371 ms SSM CV FUJI PACS LVIDd 5.46 3.8 - 5.2 cm SSM CV FUJI PACS LVIDs 3.48 2.2 - 3.5 cm SSM CV FUJI PACS IVSd 2D 0.748 0.6 - 0.9 cm SSM CV FUJI PACS LVPWd 0.81 0.6 - 0.9 cm SSM CV FUJI PACS Fractional Shortening 2D 36 28 - 44 % SSM CV FUJI PACS LV ESV 2D 50.138 14 - 42 mL SSM CV FUJI PACS LV ESV index 2D 23.65 8 - 24 mL/m2 SSM CV FUJI PACS LV EDV 2D 145.198 46 - 106 mL SSM CV FUJI PACS LV EDV index 2D 68.50 29 - 61 mL/m2 SSM CV FUJI PACS LVOT diam 2.0 cm SSM CV FUJ I PACS LVOT area 3.14 cm2 SSM CV FUJ I PACS LV RWT 0.295 SSM CV FUJ I PACS IVS/LVPW 0.927 SSM CV FUJ I PACS LV mass 2D 152.586 66 - 150 g SSM CV FUJI PACS LV mass index 2D 71.99 44 - 88 g/m2 SSM CV FUJI PACS MV E pk black 73.311 cm/s SSM CV F UJI PACS MV avg E/e' ratio 8.08 SS M CV FUJI PACS MV A pk black 78.679 cm/s SSM CV F UJI PACS MV E A ratio 0.93 SSM CV FUJI PACS MV E' lateral black 8.921 cm/s SS M CV FUJI PACS MV DT 166 ms SSM CV FUJ I PACS MV E' septal black 9.234 cm/s SSM CV FUJI PACS MV E/e' septal 7.939 SSM C V FUJI PACS MV E/e' lateral 8.217 SSM CV FUJI PACS LA vol BP 59.321 mL SSM CV FUJ I PACS TR pk black 309.3 cm/s SSM CV FUJ I PACS LVOT pk black 1.20 m/s SSM CV F UJI PACS LVOT mn black 0.77 m/s SSM CV F UJI PACS LVOT mn grad 2.8 mmHg SSM CV FUJI PACS LVOT Cardiac Output 6.153 l/min SSM CV FUJI PACS LVOT Cardiac Index 2.90 l/min/m2 SSM CV FUJI PACS LA vol index 28.0 16 - 34 mL/m2 SSM CV FUJI PACS LA vol BP A-L 63.539 mL SSM CV FUJI PACS TV S' black 14.803 cm/s SSM CV [facility] I PACS TAPSE 2.595 1.7 cm SSM CV [facility] I PACS AV mn grad 6 mmHg SSM CV FU JI PACS AV pk grad 11 mmHg SSM CV FU JI PACS AV mn black 1.16 m/s SSM CV [facility] I PACS AV pk black 1.69 m/s SSM CV [facility] I PACS AV VTI 40.358 cm SSM CV FUJ I PACS LVOT pk grad 5.714 mmHg SSM CV FUJI PACS LVOT VTI 28.604 cm SSM CV FUJ I PACS AV area cont VTI 2.2 cm2 SSM CV FUJI PACS AV area pk black 2.2 cm2 SSM C V FUJI PACS AV Doppler black index pk black 0.708 SSM CV FUJI PACS Dimensionless Index 0.709 SSM CV FUJI PACS MV decel slope 441.5 cm/s2 SSM C V FUJI PACS sPAP 41.3 mmHg SSM CV FUJ I PACS RVSP 41.3 mmHg SSM CV FUJ I PACS RAP 3.0 mmHg SSM CV FUJ I PACS TR pk grad 38 mmHg SSM CV FU JI PACS PV pk black 109.625 cm/s SSM CV FUJ I PACS PV pk grad 5 mmHg SSM CV FU JI PACS Ascending aorta 2.92 cm SSM CV FUJI PACS IVC size 1.8 cm SSM CV FUJ I PACS LA ESV A4C MOD Index 33 ml/m2 SSM CV FUJI PACS LA ESV A2C MOD Index 22 ml/m2 SSM CV FUJI PACS Prox Asc Ao Diameter Index 1.377 cm SSM CV FUJI PACS LA Size 4.139 cm SSM CV FUJ I PACS LVIDs index 1.64 1.3 - 2.1 cm/m2 SSM CV FUJI PACS LV LVIDd index 2.58 2.3 - 3.1 cm/m2 SSM CV FUJI PACS Anatomical Region Laterality Modality Ultrasound Narrative 01/20/2024 5:37 PM CDT Left Ventricle: Left ventricle size is normal. Normal wall thickness. Normal systolic function with a visually estimated EF of 60 - 65%. Normal wall motion. Grade I diastolic dysfunction with normal left atrial pressure. Left Atrium: Left atrium size is normal. Left atrium volume index is 28.0 mL/m2. Right Ventricle: Right ventricle size is normal. Normal systolic function. Right Atrium: Right atrium size is normal. Tricuspid Valve: Trace regurgitation. The pulmonary artery systolic pressure is mildly elevated. Estimated RVSP is 41.3 mmHg. Mitral Valve: Trace regurgitation. Left Ventricle Left ventricle size is normal. Normal wall thickness. Normal systolic function with a visually estimated EF of 60 - 65%. Normal wall motion. Grade I diastolic dysfunction with normal left atrial pressure. Right Ventricle Right ventricle size is normal. Normal systolic function. Left Atrium Left atrium size is normal. Left atrium volume index is 28.0 mL/m2. Right Atrium Right atrium size is normal. IVC/SVC IVC diameter is less than or equal to 21 mm and decreases greater than 50% during inspiration; therefore the estimated right atrial pressure is normal (~3 mmHg). Mitral Valve Valve structure is normal. No restricted motion. Trace regurgitation. No stenosis. Tricuspid Valve Valve structure is normal. No restricted motion. Trace regurgitation. The pulmonary artery systolic pressure is mildly elevated. Estimated RVSP is 41.3 mmHg. No stenosis. Aortic Valve Valve structure is trileaflet. No restricted motion. No regurgitation. No stenosis. Pulmonic Valve Valve structure is normal. No restricted motion. No regurgitation. No stenosis. Ascending Aorta Normal sized sinus of Valsalva (aortic root) and ascending aorta. Pericardium No pericardial effusion. Study Details Study quality was fair. A complete 2D, color Doppler, spectral Doppler and M- mode echocardiogram was performed. The apical, parasternal, subcostal and suprasternal views were obtained. Procedure Note Kike Ferro MD - 01/20/2024 Left Ventricle: Left ventricle size is normal. Normal wall thickness.Normal systolic function with a visually estimated EF of 60 - 65%. Normalwall motion. Grade I diastolic dysfunction with normal left atrialpressure. Left Atrium: Left atrium size is normal. Left atrium volume index is28.0 mL/m2. Right Ventricle: Right ventricle size is normal. Normal systolicfunction. Right Atrium: Right atrium size is normal. Tricuspid Valve: Trace regurgitation. The pulmonary artery systolicpressure is mildly elevated. Estimated RVSP is 41.3 mmHg. Mitral Valve: Trace regurgitation. Kike Ferro MD ECHO CUPID * NM MYOCARD PERF REST STRESS (01/10/2024 9:49 AM CDT) Anatomical Region Laterality Modality Chest Nuclear Digisoni cs 01/10/2024 8:04 AM CDT Narrative 01/13/2024 9:46 AM CDT [id number] [address] [facility]/heart Nuclear Myocardial Perfusion Scan Report Pat.Name: KATIE DURAN Pat.ID: [id number] .Date: 01/10/2024 Exam Time: 8:04:00 AM Study Type:Nuclear Myocardial Perfusion Scan Age: 7 1960,63Y Sex: FEMALE Sonogrphr: Jace Montgomery, [facility] Pat. Stat.:Outpatient Reason for Study: Chest pain, Abnormal EKG, Atrial flutter, Hypertension History / Clinical: Chest pain, Hypertension Procedures: Lexiscan Perfusion Scan Visit ID: [id number] Nurse: Neva Matias RN Risk Factors:Hypertension Clinical Symptoms:Chest pain ++++++++++++++++++++++++++++++++++++ SUMMARY: ++++++++++++++++++++++++++++++++++++ Results for Lexiscan Infusion: 1. Normal with no significant ST-T changes noted. 2. No angina noted. 3. Normal BP and HR response. 4. No arrhythmias noted. Results for Nuclear Perfusion Test: Findings: Image quality is technically adequate with minimal patient motion. There is a fixed anterior wall perfusion defect suggestive of breast attenuation, and other normal distribution of activity in the left ventricle myocardium on both rest and post-stress images. Gated SPECT images demonstrate normal left ventricular contractility and wall thickening. Post-exercise left ventricular volume is normal. The post-stress left ventricular ejection fraction is within normal limits at 55%. Opinion: 1. Myocardial Perfusion: Anterior wall breast attenuation, otherwise normal rest and stress images. 2. Left ventricle: Normal size, wall thickness and systolic function (post-stress ejection fraction is 55%). ++++++++++++++++++++++++++++++++++++ STRESS: ++++++++++++++++++++++++++++++++++++ Baseline Vital Signs: Intervention Regadenoson Peak Dose 0.4 mg Atropine 0 Stress Test Results: Symptoms and Complications: Signed 01/13/2024 09:46 AM Kike Ferro MD, [facility], [facility] Procedure Note Kike Ferro MD - 01/18/[id number] [address] [facility] Nuclear Myocardial Perfusion Scan Report Pat.Name: KATIE DURAN Pat.ID: [id number] .Date: 01/10/2024 Exam Time: 8:04:00 AM Study Type:Nuclear Myocardial Perfusion Scan Age: 7 1960,63Y Sex: FEMALE Sonogrphr: ALFREDO AlmonteMT Pat. Stat.:Outpatient Reason for Study: Chest pain, Abnormal EKG, Atrial flutter, Hypertension History / Clinical: Chest pain, Hypertension Procedures: Lexiscan Perfusion Scan Visit ID: [id number] Nurse: Neva Matias RN Risk Factors:Hypertension Clinical Symptoms:Chest pain ++++++++++++++++++++++++++++++++++++ SUMMARY: ++++++++++++++++++++++++++++++++++++ Results for Lexiscan Infusion: 1. Normal with no significant ST-T changes noted. 2. No angina noted. 3. Normal BP and HR response. 4. No arrhythmias noted. Results for Nuclear Perfusion Test: Findings: Image quality is technically adequate with minimal patient motion. There is a fixed anterior wall perfusion defect suggestive of breast attenuation, and other normal distribution of activity in the left ventricle myocardium on both rest and post-stress images. Gated SPECT images demonstrate normal left ventricular contractility and wall thickening. Post-exercise left ventricular volume is normal. The post-stress left ventricular ejection fraction is within normal limits at 55%. Opinion: 1. Myocardial Perfusion: Anterior wall breast attenuation, otherwise normal rest and stress images. 2. Left ventricle: Normal size, wall thickness and systolic function (post-stress ejection fraction is 55%). ++++++++++++++++++++++++++++++++++++ STRESS: ++++++++++++++++++++++++++++++++++++ Baseline Vital Signs: Intervention Regadenoson Peak Dose 0.4 mg Atropine 0 Stress Test Results: Symptoms and Complications: Signed 01/13/2024 09:46 AM Kike Ferro MD, [facility], [facility] Kike Ferro MD NM ORDERABLES * STRESS TEST Pharm-Lexiscan (Regadenoson) (01/10/2024 9:00 AM CDT) Predicted METS 6.4 METS [facility] Target HR 133 bpm [facility] Max Age Predicted HR 156 bpm [facility] Anatomical Region Laterality Modality Cardiac Electrop hysiology Narrative 01/11/2024 10:43 AM CDT ECG: The ECG was not diagnostic due to baseline abnormality. Myocardial perfusion imaging reported separately. Stress Findings A pharmacological stress test was performed using regadenoson (0.4 mg). The patient reported dyspnea during the stress test. The patient reached the end of the protocol. Blood pressure demonstrated a normal response and heart rate demonstrated a normal response to stress. The patient's heart rate recovery was normal. ECG Resting ECG: Abnormal. Non-specific T-wave abnormalities present. Exhibits sinus bradycardia. Stress ECG: Exhibits no arrhythmias. Recovery ECG: Exhibits no arrhythmias. The ECG was not diagnostic due to baseline abnormality. Kike Ferro MD CARDIAC SERVICES CUP ID * EKG 12-LEAD (01/05/2024) Kike Ferro MD ECG ORDERABLES DP MED [facility] MUSE Care Teams Jute Bag Sewer Relationship Specialty Start Date End Date Urmila Mason, HOT DIP PLATING SUPERVISOR-TOURIST ADVISER [address] [place] [address] PCP - General Nurse Practitioner Family 09/25/24 [place] [id number] [address] Physician Cardiovascular Disease 01/05/24
--- OUTSIDE RECORDS SUMMARY | 2024-09-28 14:11 | XMS_ITS | Continuity of Care Document ---
Author Organization [facility] [facility] Address [address] [place] [address] Phone Care Team Providers Care Manager Nursing Home Name Role Phone Noé Duron MD Unavailable Unavailable Advance Directives Directive Yes / No Effective Date File Name No Information Encounters Encounter Description Practice Location Reason(s) For Visit Diagnoses Date Provider Providers Copied on Encounter [email or web address], [address], [place], [place], [id number], [place] tel:[phone] [facility] [place] No Information Domi Umanzor. [address] [place], [address], [place]. tel:[phone] Referring Provider: Sybil Francis [facility] [place], [address]. tel:[phone] Family History Family Member Type Diagnosis Age At Onset No Information Payers Payer name Insurance type Covered alliance party ID Authoriza tion(s) [facility] CI [id number] [facility] MDCR SUPPLEMENT ONLY CI [id number] Social History Type Description Quantity Date Captured Comments Sex Female Smoking Status No Information Chief Complaint And Reason For Visit No Information Reason For Referral Reason For Referral No Information History Of Present Illness Encounter Date Complaint History Of Prese nt Illness No Information Functional Status Date Functional Assessmen t No Information Instructions Date Instruction Additional Infor mation No Information Assessments Type Assessment Date No Information Patient Care Teams Name Effective Dates (start - stop) Status Members No Information
--- OUTSIDE RECORDS SUMMARY | 2024-09-28 14:11 | XMS_ITS | Encounter Summary ---
Author Organization [facility] Address [address] [place] [address] Phone Care Team Providers Care Meat Counter Clerk Name Role Phone Sybil Francis MD Primary Care Provider [phone] Encounter Details Date Type Department Care Team (Late st Contact Info) Description 09/05/2018 Telephone [facility] Ophthalmology 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
== END 2024-09-28 14:07 | disposition home or self-care (01) ==
LOC: CHSIMG 14:08
PROVIDERS: PCP Nurse Practitioner Family; Visit Provider Obstetrics & Gynecology Gynecology
DX: Z78.0 Asymptomatic menopausal state (principal); M85.88 Other specified disorders of bone density and structure, other site
CPT/HCPCS: 77080

== ENCOUNTER 2024-10-18 11:00 | Outpatient (CLI) | payer MEDICARE, SELFPAY ==
--- NOTE | ~2024-10-18 | MM_ITS ---
EXAMINATION: MM screening aiyana BI w tanya HISTORY: Screening mammogram, family history of breast cancer in her sister. TECHNIQUE: Craniocaudal and mediolateral oblique 3-D tomosynthesis images were obtained and synthetic 2-D images were generated. CAD analysis was submitted and interpreted. COMPARISON: 07/08/2023, 10/11/2020 BREAST PARENCHYMAL COMPOSITION:Not Dense. The breasts are almost entirely fatty FINDINGS: No suspicious mass, calcification, or architectural distortion are identified in either holly ast to suggest malignancy. There has been no suspicious interval change. IMPRESSION: No mammographic evidence of malignancy. Recommend routine screening mammography in one year. BI-RADS Category 1: Negative Reviewed, dictated and finalized at location . STRIAL DESIGN ENGINEER
== END 2024-10-18 11:01 | disposition home or self-care (01) ==
LOC: MICIMG 11:01
PROVIDERS: PCP Nurse Practitioner; Visit Provider Nurse Practitioner
DX: Z12.31 Encounter for screening mammogram for malignant neoplasm of breast (principal)
CPT/HCPCS: 77063; 77067

== ENCOUNTER 2025-05-28 09:32 | Outpatient (CLI) | payer MEDICARE, SELFPAY ==
--- NOTE | ~2025-05-28 | XR_ITS ---
EXAMINATION: XR foot LT min 3V, 05/28/2025 10:00 CDT HISTORY: M79.672 - Pain in left foot COMPARISON: No comparisons available. Findings: No acute fracture or malalignment. No significant degenerative changes. Soft tissues unremarkable. Impression: No acute fracture or malalignment. Reviewed, dictated and finalized at location P. Impression: No acute fracture or malalignment.
[2025-05-28 09:52] LABS: Hematocrit 43.0 % (35.0-42.0); Hemoglobin 14.3 g/dL (11.7-13.8); Immature Granulocyte Percent A 0.2 % (0.0-0.0); Lymphocytes Absolute Auto 1.84 K/mm3 (1.10-4.50); Mean Corpuscular HGB Conc 33.3 g/dL (32-36); Mean Corpuscular Hemoglobin 30.0 pg (27.0-31.0); Mean Corpuscular Volume 90.3 fL (78.0-102.0); Nucleated Red Blood Cells Absolute Auto 0.00 K/mm3 (0.00-0.00); Nucleated Red Blood Cells Perc 0.0 % (0-0.0); Platelet Count Result 254 K/mm3 (150-420); Red Blood Count 4.76 M/mm3 (4.20-5.40); White Blood Count 5.4 K/mm3 (4.8-10.8)
[2025-05-28 10:22] LABS: Alanine Aminotransferase 18 U/L (6-35); Albumin Level 4.7 g/dL (3.5-5.1); Alkaline Phosphatase 55 U/L (38-126); Anion Gap 9 mmol/L (4-12); Aspartate Amino Transferase 23 U/L (14-36); Bilirubin,Total 0.5 mg/dL (0.2-1.3); Blood Urea Nitrogen 17 mg/dL (7-17); Calcium 9.5 mg/dL (8.4-10.2); Carbon Dioxide 27 mmol/L (22-30); Chloride 103 mmol/L (98-107); Cholesterol 277 mg/dL (0-200); Estimated Glomerular Filt Rate > 60; Glucose 94 mg/dL (65-110); HDL Direct 86 mg/dL; Osmolality Calculated 289 mOsm/kg (285-295); Potassium 4.3 mmol/L (3.4-5.0); Sodium 139 mmol/L (137-145); Total Protein 8.8 g/dL (6.3-8.2); Triglycerides 144 mg/dL (<150)
== END 2025-05-28 09:33 | disposition home or self-care (01) ==
LOC: CHSLAB 09:33
PROVIDERS: PCP Nurse Practitioner Family; Visit Provider Nurse Practitioner Family
DX: Z13.6 Encounter for screening for cardiovascular disorders (principal); E78.5 Hyperlipidemia, unspecified; I10 Essential (primary) hypertension; Z79.899 Other long term (current) drug therapy; M79.672 Pain in left foot
CPT/HCPCS: 36415; 73630; 80053; 80061; 82306; 85025